=== PATIENT | male | born 1945 | race Caucasian/White ===

== ENCOUNTER 2018-12-10 11:01 | Outpatient (REF) | payer MEDICARE, SELFPAY ==
[2018-12-10 19:48] LABS: BUN 15 mg/dL (7-18); CREATININE 1.09 mg/dL (0.70-1.30); Calcium 9.2 mg/dL (8.5-10.1); Chloride 106 mmol/L (98-107); Glucose 86 mg/dL (70-100); Potassium 4.5 mmol/L (3.5-5.1); Sodium 142 mmol/L (136-145)
[2018-12-14 11:47] LABS: PSA, Screening 0.5 ng/ml (0-6.5)
== END 2018-12-10 11:21 ==
LOC: NCHCN 11:01
PROVIDERS: PCP Family Medicine; Visit Provider Family Medicine
DX: I10 Essential (primary) hypertension (principal); N40.0 Benign prostatic hyperplasia without lower urinary tract symptoms; Z12.5 Encounter for screening for malignant neoplasm of prostate
CPT/HCPCS: 80048; 84153

== ENCOUNTER 2019-12-30 08:10 | Observation (INO) | payer MEDICARE, SELFPAY ==
[2019-12-30] VITALS (23 sets, daily range): BP systolic 84–147; BP diastolic 48–122; PULSE 61–85; RESP 14–30; TEMP 36.7–37.1; O2SAT 89–95
--- NOTE | 2019-12-30 08:00 | RT.EKG_ITS ---
APPROVED REPORT Exam: Resting ECG Patient Location: E HR:77 bpm ECG Measurements Heart Rate 77 AXIS WA 201 P 37 QRSd 92 QRS -28 QT 421 T 58 QTc 477 Conclusion Sinus rhythm...normal P axis, V-rate 60- 99 Inferior infarct, old...Q >35mS, II III aVF
[2019-12-30] MEDS: Normal Saline 1,000 ML 1000 ML IV ×2 (08:15→08:42)
--- NOTE | 2019-12-30 08:21 | ED.GENADUL_ITS ---
Discharge Plan Disposition Patient Disposition: [facility] INPATIENT Condition: Good Discharge Details Clinical Impression: Acute hypotension, Hypoxia Admit Date/Time: 12/30/19 10:45 Admit Provider: Marshall Amaya Attending Provider: Marshall Amaya Primary Care Provider: Meagan Neely V ED Provider: Tara Jin Discharge Data Discharge Date/Time-TO BE ENTERED AT DEPARTURE: 12/30/19 11:46 Medical Decision Making <Tara Jin - Last Filed: 12/30/19 15:07> Work-up ordered including CBC, CMP, magnesium, troponin x2, EKG, CT chest PE protocol. 0838: Blood pressure at this time is 84/49 map of 58. Instructed nurse staff community health to being an additional liter of normal saline wide open. He is got approximately 500 mls at this time. He is alert and oriented, no complaints at this time. Differential diagnosis includes PE, CAD, dehydration, sepsis Patient is on 2L O2 N/C he is satting 93%, former smoker, recent prescription for albuterol. O944: Blood pressure is now up to 115/49, pulse 65, respirations 1893% on 2 L nasal cannula. White blood cell count is 247.54, absolute neutrophils 155.94 on review of labs from December 16, 2027 [facility] his white blood cell count was 296.16 and absolute neutrophils were 183.62. Lactate is 1.8, potassium is three 4.4 BUN is 28 creatinine is 1.47 GFR is 46.57. 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 Negative CT Chest for PE. BP at this time is 131/64 with a map of 81. Hospitalist paged for possible admission due to hypotension upon arrival and hypoxia requiring oxygen. 1011: Spoke with Dr. Amaya regarding patient, he agrees to admission for obs at this time. Informed patient of POC. contacted and notified of Plan of care, verbalizes understanding. Medical Records Medical records reviewed: Yes I reviewed the patient's medical records. Medical records narrative: CT chest CTA thoracic aorta results obtained from [facility] from January 25, 2019. Admission history and physical received from [facility] from December 16, 2019 and discharge summary from December 21, 2019 from [facility]. <Ángel Aragon MD - Last Filed: 01/06/20 09:18> 9:11 -- Patient seen, examined, and discussed with THERON Jin. I agree with treatment plan as discussed/documented. Patient is a 74-year-old male recently diagnosed with leukemia, recently started on chemotherapy, also history of stable aortic aneurysm per patient, here with intermittent dizziness over the past few weeks, was at outpatient clinic today and found to be hypotensive. Patient denies pain, fever, cough, shortness of breath or swelling. We have given initial IV fluid bolus and BP is improved. Patient notes he is feeling better. Patient examined and lungs clear to auscultation, regular rate and rhythm with no murmur, no calf tenderness, abdominal exam benign. Initial blood pressure hypotensive. Patient is not tachycardic but is on a beta-cortes. Repeat blood pressure after 0.5 L crystalloid bolus improved with map now 62. Will continue IV fluid bolus. High concern for pulmonary embolism. Plan to obtain CT of the chest. Screening ECG was reviewed and interpreted by me: Sinus rhythm 77 bpm, normal axis, no STEMI.' I spoke with the patient's in a parking more about diagnostic treatment plan. HPI <Tara Jin - Last Filed: 12/30/19 15:07> General Mode of arrival: EMS . Date/Time Provider Initiated Documentation: 12/30/19 08:11 . Limitations to Documentation: no limitations . Information obtained by: patient and EMS . HPI Narrative: 74-year-old male presents to the ER via EMS chief complaint of dizziness and low blood pressure. Per staff at the hematology oncology facility patient appeared pale and diaphoretic, he began to feel dizzy sat down and found his blood pressure being 70 systolic. EMS got there and a standing blood pressure was 69 systolic. Patient reports the room spinning. Patient denies any chest pain or shortness of breath however he has borderline oxygen sat on room air at 89%. Upon initial exam does have a blood pressure of 88/52 after a couple 100 cc of normal saline infusion. He does have a diagnosis of leukemia which she has been taking oral chemo pills for. Related Data Home Medications Medication Instructions Recorded Confirmed albuterol sulfate 2 puff INHALATION Q4H PRN PRN 12/30/19 12/30/19 allopurinol 100 mg PO BID 12/30/19 12/30/19 omeprazole 40 mg PO DAILY 12/30/19 12/30/19 tamsulosin 0.8 mg PO QHS 12/30/19 12/30/19 terazosin 10 mg PO DAILY 12/30/19 12/30/19 Allergies Allergy/AdvReac Type Severity Reaction Status Date / Time No Known Allergies Allergy Unverified 12/30/19 08:23 Review of Systems <Tara Jin - Last Filed: 12/30/19 15:07> Narrative: Constitutional: Negative for weight loss, alert and oriented, well groomed, normal body habitus, appears comfortable. HEENT: Denies trauma, headaches, blurry vision, nasal discharge, sore throat, trouble swallowing. Chest: Denies chest pain, palpitations, irregular rhythm, hypertension. Respiratory: Denies Shortness of breath, cough, hemoptysis. GI: Denies abdominal pain, nausea, vomiting, diarrhea, constipation. : Denies dysuria, hematuria, flank pain, rectal bleeding. Neuro: Denies dizziness, blurry vision, weakness, syncope, headache or facial numbness. Hematologic: Denies easy bruising, intolerance to heat or cold, hair loss. PFSH <Tara Rauschton - [facility] Filed: 12/30/19 15:07> Medical History OSVALDO (acute kidney injury) CML (chronic myeloid leukemia) GERD (gastroesophageal reflux disease) HTN (hypertension) Social History Smoking/Tobacco Use Status: Former Tobacco Use Alcohol Intake: former Drug use: Never Substance use type: does not use Do you feel safe at home: Yes Do you feel safe in your relationship?: Yes Exam <Tara Jin - [facility] Filed: 12/30/19 15:07> Narrative Exam Narrative: Constitutional: Alert and oriented x3. Appears stated age. Normal body habitus. Head: Normocephalic, no trauma. Eyes: Pupils PERRLA, Red reflex noted, EOM's intact. Eyelids symmetrical without lesions, discharge, or swelling. ENT: Bilateral TM's WNL, External ear normal to inspection, no mastoid TTP, swelling, or erythema, Nasal turbinates WNL, no nasal discharge. Normal dentition, Posterior pharynx WNL, no exudate. Chest: RRR, Normal S1, S2, distal pulses intact. Hypotension at 88/52. Resp: Lungs clear to auscultation bilaterally, no wheezes, rales, or rhonchi. Musculoskeletal: Normal gait, 5/5 strength to all four extremities. Skin: No suspicious rashes or lesions. Capillary refill less than 2 sec. pale Neurologic: Cranial nerves II-XII intact. Alert and oriented x 3. DTR's intact. Hematologic/Lymphatic: No ecchymosis, no lymphadenopathy.
[2019-12-30 08:40] LABS: Lactate 1.8 mmol/L (0.6-1.4)
[2019-12-30] MEDS: Normal Saline Flush 10 ML SYR IVP (08:43)
--- NOTE | 2019-12-30 08:44 | NUR.NOTE ---
Nursing Note: Sean, waiting in car. Updated on plan of care. She states she will wait in parking lot, despite projection of multiple hours of treatment.
[2019-12-30 08:47] LABS: Abs Immature Grans 69.31 10^3/uL (0.0-0.06); HCT 37.8 % (40.0-50.0); HGB 12.2 g/dL (13.5-17.5); MCH 32.7 pg (27.0-33.0); MCHC 32.3 % (32.0-36.0); MCV 101.3 fL (80-95); MPV 11.7 fL (8.0-11.0); Platelet Count 315 10^3/uL (130-400); RBC 3.73 10^6/uL (4.36-5.78); RDW 19.1 % (11.8-14.1); RDW-SD 68.9 fL
[2019-12-30 09:00] LABS: WBC 247.54 10^3/uL (4.4-10.8)
[2019-12-30 09:07] LABS: ALT 22 U/L (16-63); AST 38 U/L (15-37); Alkaline Phosphatase 81 U/L (46-116); Anion Gap 8.4 mmol/L (3-11); BUN 28 mg/dL (7-18); Bilirubin, Total 0.5 mg/dL (0.2-1.0); CO2 26.6 mmol/L (21.0-32.0); CREATININE 1.47 mg/dL (0.70-1.30); Calcium 8.9 mg/dL (8.5-10.1); Chloride 103 mmol/L (98-107); Estimated GFR 46.57 (mL/min/1.73m2); Glucose 145 mg/dL (74-106); Potassium 3.4 mmol/L (3.5-5.1); Sodium 138 mmol/L (136-145); Total Protein 7.3 g/dL (6.4-8.2)
[2019-12-30 09:11] LABS: Absolute Basophil Count 17.33 10^3/uL (0.0-0.2); Absolute Eosinophil Count 12.38 10^3/uL (0.0-0.7); Absolute Lymphocyte Count 2.48 10^3/uL (1.2-3.4); Absolute Monocyte Count 2.48 10^3/uL (0.1-0.8); Absolute Neutrophil Count 155.95 10^3/uL (1.2-6.7); Bands % 23
[2019-12-30 09:12] LABS: Anisocytosis 2+; Diff Comment Manual Differential; Macrocytosis 1+; Metamyelocytes % 10; Myelocytes % 10; Nucleated RBC 0 %; Polychromasia Present; Promyelocytes % 3
[2019-12-30 09:14] LABS: Troponin I < 0.05 ng/mL (<0.06)
[2019-12-30] MEDS: Normal Saline - Diluent 50 ML VIAL IV (09:44)
[2019-12-30] MEDS: Omnipaque 350 MG/ML 100 ML BTL IJ (09:45)
--- NOTE | 2019-12-30 09:46 | DI.CT_ITS ---
EXAM: CT CHEST PE CTA CLINICAL HISTORY: Hypotension, hypoxia, R/O PE. TECHNIQUE: Imaging Protocol: Axial CT angiography was performed with multi-slice acquisition and mu lti-planar and/or 3D reconstructions. CONTRAST MATERIAL: Intravenous: Omnipaque 350 Contrast volume:100 mL COMPARISON: CR CHEST 2 VIEWS PA,LAT from 07/31/2010 FINDINGS: There is patient motion artifact. Pulmonary Arteries: Patient motion artifact limits evaluation of the pulmonary arteries. No central pulmonary arterial emboli are noted. Tracheobronchial tree: Patent where visualized. Mediastinum and Marisa: No dominant adenopathy or fluid collection. Pulmonary parenchyma: No consolidation or dominant measurable mass. No architectural distortion. Pleura: No effusion or pneumothorax. Heart: The heart is not dilated. No coronary artery calcifications are seen. No pericardial effusion. Aorta: Thoracic aorta non-dilated. Mild atherosclerosis. No dissection. Upper abdomen: Unremarkable. Bones: Degenerative changes. Soft tissues: Unremarkable. IMPRESSION: No evidence of pulmonary embolism, thoracic aortic dissection or aneurysm. Findings were discussed with the emergency department on the date of the examination. RADIATION DOSE DELIVERED: Total DLP DATA REPOSITORY: All CT scans at this facility are submitted to the National Radiology Data Registry (NRDR) Dose Index Registry (DIR) with the [employer] (ACR). RADIATION OPTIMIZATION: All CT scans at this facility use at least one of these dose optimization te chniques: automated exposure control; mA and/or kV adjustment per patient size (includes targeted exa ms where dose is matched to clinical indication); or iterative reconstruction.
--- NOTE | 2019-12-30 11:05 | HPE_ITS ---
Date of service: 12/30/19 Time of Service: 11:05 Assessment and Plan Assessment and plan (1) CML (chronic myeloid leukemia): Start date: 12/30/19 Start time: 11:13 Status: Acute Assessment and plan: New onset diagnosis CML with recent chemotherapy, presents with hypoxia and hypotension, WBC 247, improved from previous 296 on 12/15, admitted to m/s receiving aggressive hydration. No source of infection. Likely cancer induced, he does have enlarged spleen, lactate 1.8. (2) Hypoxia: Start date: 12/30/19 Start time: 11:26 Status: Acute Assessment and plan: Improved with oxygen CT r/o PE, PNA (3) Acute hypotension: Start date: 12/30/19 Start time: 11:31 Status: Acute Assessment and plan: Aggressive hydration, hold antihypertensives (4) HTN (hypertension): Start date: 12/30/19 Start time: 11:32 Status: Chronic Assessment and plan: Hold antihypertensives in setting of severe dehydration Nikolay healthy meal Qualifiers: Hypertension type: essential hypertension Qualified Code(s): I10 - Essential (primary) hypertension (5) OSVALDO (acute kidney injury): Start date: 12/30/19 Start time: 11:27 Status: Chronic Assessment and plan: Improved from Dec 15. Continue hydration, hold nephrotoxic medications (6) GERD (gastroesophageal reflux disease): Start date: 12/30/19 Start time: 11:34 Status: Chronic Assessment and plan: Continue omeprazole po Above case discussed with Dr. Amaya who is in agreement. Qualifiers: Esophagitis presence: esophagitis presence not specified Qualified Code(s): K21.9 - Gastro-esophageal reflux disease without esophagitis History of Present Illness History of Present Illness Chief Complaint: CML, Hypotension, OSVALDO, Deydration Narrative: 74 y.o male with PMH of smoking, HTN, GERD, recently diagnosed with CML presents to [facility] ED after hypotension at outpatient clinic. Mr. Neff is a newly diagnosed CML patient, recently started on chemotherapy; who showed up for to outpatient clinic today and was found to be hypotensive with hypoxia. In the ED he was found to have oxygen lever below 88 placed on 2 l and saturation increased to 93%. BP on arrival was 84/59, he received saline boluses; labs in the ED revealing WBC at 247.46, down from 296.16 on dec 15 with ANC 155 down from 183. Lactate was 1.8, K 3.4, Creatinine 1.47. He was asked to be admitted to M/S for further management. CT negative for PE, infectious etiology. Review of Systems All systems reviewed & are unremarkable except as noted in HPI and below PFSH Medical History OSVALDO (acute kidney injury) CML (chronic myeloid leukemia) GERD (gastroesophageal reflux disease) HTN (hypertension) Social History Smoking/Tobacco Use Status: Former Tobacco Use Alcohol Intake: former Drug use: Never Substance use type: does not use Do you feel safe at home: Yes Do you feel safe in your relationship?: Yes Meds Home Medications and Allergies Home Medications Medication Instructions Recorded Confirmed Type albuterol sulfate 2 puff INHALATION Q4H PRN PRN 12/30/19 12/30/19 History allopurinol 100 mg PO BID 12/30/19 12/30/19 History metoprolol tartrate 25 mg PO BID 12/30/19 12/30/19 History omeprazole 40 mg PO DAILY 12/30/19 12/30/19 History tamsulosin 0.8 mg PO QHS 12/30/19 12/30/19 History terazosin 10 mg PO DAILY 12/30/19 12/30/19 History terazosin mg 12/30/19 History Allergies Allergy/AdvReac Type Severity Reaction Status Date / Time No Known Allergies Allergy Unverified 12/30/19 08:23 Exam Narrative Exam Narrative: Elderly pleasant and cooperative male AA0x3 sitting up in bed, speaking in complete sentences. No JVD, MMM, EOMI, PERRLA. Abd round, bsx4. LSC. Skin intact. RRR with extra beat once in a while. Skin intact no clubbing, cyanosis or edema Results Labs Result diagrams: 12/30/19 08:25 12/30/19 08:25 Labs: Laboratory Results - last 24 hr 12/30/19 12/30/19 12/30/19 08:25 08:25 08:25 WBC 247.54 H* RBC 3.73 L Hgb 12.2 L Hct 37.8 L MCV 101.3 H MCH 32.7 MCHC 32.3 RDW 19.1 H Plt Count 315 MPV 11.7 H Immature Gran % See Differential Neutrophils % 40.0 Band Neutrophils % 23 Lymphocytes % 1.0 Monocytes % 1.0 Eosinophils % 5.0 Basophils % 7.0 Metamyelocytes % 10 Myelocytes % 10 Promyelocytes % 3 Nucleated RBC % 0 Absolute Neutrophils 155.95 H Absolute Lymphocytes 2.48 Absolute Monocytes 2.48 H Absolute Eosinophils 12.38 H Absolute Basophils 17.33 H RBC Morphology See below Polychromasia Present Anisocytosis 2+ Macrocytosis 1+ VBG Lactate 1.8 H Sodium 138 Potassium 3.4 L Chloride 103 Carbon Dioxide 26.6 Anion Gap 8.4 BUN 28 H Creatinine 1.47 H Estimated GFR/1.73 m2 46.57 Glucose 145 H Calcium 8.9 Magnesium 2.0 Total Bilirubin 0.5 AST 38 H ALT 22 Alkaline Phosphatase 81 Troponin I < 0.05 Total Protein 7.3 Albumin 3.0 L Last Vital Signs Temp 36.7 C 12/30/19 08:18 Pulse 62 12/30/19 10:30 Resp 14 12/30/19 10:30 BP 125/73 12/30/19 10:30 Pulse Ox 94 12/30/19 10:30 COVID-19 Screening Have you,or household,traveled outside [place] in last 14 days?: No Had IN PERSON contact w/suspected or confirmed C-19 person: No
[2019-12-30 11:36] LABS: Procalcitonin 0.6 ng/mL
[2019-12-30] MEDS: Normal Saline 1,000 ML 200 ML IV ×3 (12:23→22:37)
[2019-12-30] MEDS: Potassium Chloride 20 MEQ TABCR 40 MEQ PO (12:24)
[2019-12-30] MEDS: Heparin 5,000 UNITS/ML VIAL 5000 UNITS SC ×2 (14:05→22:33)
[2019-12-30 14:24] LABS: Bilirubin Negative (Negative); Blood Negative (Negative); Clarity Clear (Clear); Glucose Negative (Negative); Ketones Negative (Negative); Leukocyte Esterase Negative (Negative); Nitrite Negative (Negative); Urobilinogen 0.2 EU/dL (Up TO 0.2); pH 5.5 (5-8)
[2019-12-30 14:49] LABS: Troponin I < 0.05 ng/mL (<0.06)
[2019-12-30] MEDS: Tamsulosin 0.4 MG CAPCR 0.8 MG PO (19:27)
[2019-12-30] MEDS: Allopurinol 100 MG TAB PO (19:27)
[2019-12-30 22:27] LABS: COVID-19 RT-PCR UVMMC Result Negative (Negative)
[2019-12-31] VITALS (8 sets, daily range): BP systolic 138–146; BP diastolic 76–83; PULSE 72–97; RESP 12–20; TEMP 35.9–37.1; O2SAT 92–100
[2019-12-31] MEDS: Normal Saline 1,000 ML 200 ML IV (03:09)
[2019-12-31] MEDS: Heparin 5,000 UNITS/ML VIAL 5000 UNITS SC ×2 (06:10→14:17)
[2019-12-31 06:53] LABS: Abs Immature Grans 70.32 10^3/uL (0.0-0.06); HCT 32.6 % (40.0-50.0); HGB 10.6 g/dL (13.5-17.5); MCH 32.1 pg (27.0-33.0); MCHC 32.5 % (32.0-36.0); MCV 98.8 fL (80-95); MPV 11.3 fL (8.0-11.0); Nucleated RBC 1 %; Platelet Count 302 10^3/uL (130-400); RDW 19.3 % (11.8-14.1); RDW-SD 68.3 fL
[2019-12-31 07:00] LABS: Anion Gap 8.1 mmol/L (3-11); BUN 19 mg/dL (7-18); CO2 24.9 mmol/L (21.0-32.0); CREATININE 1.19 mg/dL (0.70-1.30); Calcium 8.4 mg/dL (8.5-10.1); Chloride 109 mmol/L (98-107); Estimated GFR 59.44 (mL/min/1.73m2); Glucose 82 mg/dL (74-106); Potassium 3.6 mmol/L (3.5-5.1); Sodium 142 mmol/L (136-145)
[2019-12-31 07:35] LABS: WBC 230.12 10^3/uL (4.4-10.8)
[2019-12-31 07:37] LABS: Absolute Neutrophil Count 149.58 10^3/uL (1.2-6.7); Atypical Lymphocytes % 1; Bands % 20
[2019-12-31 07:38] LABS: Diff Comment Manual Differential; Metamyelocytes % 5; Myelocytes % 18; Promyelocytes % 5
[2019-12-31 07:39] LABS: Anisocytosis 1+; Macrocytosis 1+; Polychromasia Present
[2019-12-31] MEDS: Allopurinol 100 MG TAB PO (08:37)
--- NOTE | 2019-12-31 11:08 | DSE_ITS ---
Date of service: 12/31/19 Time of Service: 11:08 DS: Diagnosis Discharge Diagnosis (1) CML (chronic myeloid leukemia): Status: Acute (2) Hypoxia: Status: Acute (3) Acute hypotension: Status: Acute (4) HTN (hypertension): Status: Chronic (5) OSVALDO (acute kidney injury): Status: Chronic (6) GERD (gastroesophageal reflux disease): Status: Chronic Discharge Plan Disposition Patient Disposition: HOME Condition: Good Discharge Details Reason For Visit: HYPOTENSION,HYPOXIA Admit Date/Time: 12/30/19 10:45 Admit Provider: Marshall Rausch Attending Provider: Marshall Rausch Primary Care Provider: Meagan Neely V Hospital Course Hospital Course: This is a 74 y.o male with history of tobacco abuse, hypertension, GERD, who was recently diagnosed with CML and started on chemotherapy. He presented to [facility] ED after being found hypotensive and hypoxic at outpatient appointment. Work up in the ED was similar with oxygen requirements for a sat of 88 on room air and BP on arrival was 84/59, he received saline boluses; labs in the ED revealed WBC at 247.46, down from 296.16 on dec 15 with ANC 155 down from 183. Lactate was 1.8, K 3.4, Creatinine 1.47. He was admitted to /S on hospitalist services for further management. CT chest was negative for PE, infectious etiology. while on med/surg his oxygen was weaned off succesfully. he was satting in the high 90's on an ambulatory pulse oximetry exam. His metoprolol was placed on hold and his blood pressure normalized after receiving IV fluids. His respiratory status remained stable and some of the hypoxia was believed to be false low d/t low perfusion from hypotension making pulse oximetry less reliable and now improved with better pressures. he is eating and drinking well and voicing no new concerns. he is stable for discharge to home, he was instructed to monitor blood pressure and pulse and will defer when to resume metoprolol to his outpatient team. he will follow up outpatient as scheduled, return sooner for new or worsening symptoms discharge plan discussed with DR Rausch who is in agreement Home Meds and New Rx's Prescriptions: Continued allopurinol 100 mg Tablet 100 mg PO BID RF: 0 omeprazole 40 mg Capsule,Delayed Release(Dr/Ec) 40 mg PO DAILY RF: 0 tamsulosin 0.4 mg capsule 0.8 mg PO QHS RF: 0 albuterol sulfate 90 mcg/actuation HFA aerosol inhaler 2 puff INHALATION Q4H PRN PRNRF: 0 terazosin 10 mg capsule 10 mg PO DAILY RF: 0 Discontinued terazosin 2 mg Capsule RF: 0 metoprolol tartrate 25 mg tablet 25 mg PO BID RF: 0 Discharge Instructions Instructions: Dehydration (DC) Additional Instructions: keep scheduled follow up appointments drink at least 6-8 glasses of water daily to stay well hydrated. check blood pressure and pulse 3 times weekly, record and bring to follow up appointment. Stand Alone Forms: Nursing Discharge Form Referrals: Meagan Neely MD [Primary Care Provider] - Activity:: Activity as Tolerated Equipment/Supplies:: No Equipment Needed Diet:: As Tolerated Discharge Orders Discharge Orders: Discharge Order (Routine); Ordered 12/31/19 Ordered By: Janet Escudero DS: Summary Status at Discharge Functional status at discharge: independent ambulation Overall status at discharge: patient is back to baseline Mental Status: mental status grossly normal Speech and Movement: speech and movement normal Mood: congruent mood Affect: normal affect Exam Const General: cooperative, healthy appearing (fatigued appearing), comfortable and no acute distress Nutritional Appearance: overweight Orientation: alert, awake and oriented x3 HENMT Head: normal to inspection, normocephalic and atraumatic Mouth: oral mucosae normal Chest Chest: normal inspection of the chest Resp Effort & Inspection: normal respiratory effort Auscultation: crackles bilaterally Cardio Rate: regular rate Rhythm: regular rhythm GI Inspection: normal to inspection Palpation: soft Auscultation: normal bowel sounds Skin General skin exam: no rashes or lesions noted Neuro General: patient alert, patient awake and patient oriented x3 Cognition: normal cognition Speech: speech normal Extrem General: normal to inspection and full ROM Psych Mental Status: mental status grossly normal Speech and Movement: speech and movement normal Mood: congruent mood Affect: normal affect DS: Data Vitals/I&O Vitals and I&O: Vital Signs Temperature 37.1 C 12/31/19 07:49 Temperature Source Tympanic 12/31/19 07:49 Pulse 72 12/31/19 07:49 Pulse Rhythm Regular 12/31/19 04:00 Pulse 70 12/30/19 11:38 Respiratory Rate 17 09/25/20 07:49 Respiratory Effort Non-Labored 12/31/19 04:00 Respiratory Depth Normal 12/31/19 04:00 Respiratory Pattern Normal 12/31/19 04:00 Blood Pressure 146/83 H 12/31/19 07:49 Blood Pressure Mean 129 12/30/19 11:38 Blood Pressure Position Supine 12/30/19 08:18 Pulse Oximetry 96 12/31/19 10:21 Oxygen Delivery Method Nasal Cannula 12/31/19 10:21 Oxygen Flow Rate 1 12/31/19 10:21 Pain Level 0 12/31/19 00:16 Comment 12/30/19 11:55 Intake & Output 12/30/19 12/30/19 12/31/19 11:59 23:59 11:59 Intake Total 1999 / 3950 1950 / 3950 1466.667 / 1466.667 Output Total 400 / 400 3700 / 3700 Balance 1999 / 3549 1550 / 3550 -2233.333 / -2233.333 Weight 128.82 kg Intake: IV 1999 / 3950 1950 / 3950 906.667 / 906.667 Oral 560 / 560 Output: Urine 400 / 400 3700 / 3700 Other: Urine Color Yellow Yellow Urine Appearance Clear Clear Clear Urine Odor None Voiding Methods Bedside Commode Bedside Commode Data Completed and Pending Labs on day of discharge: Labs from last 24 hours 12/31/19 12/31/19 12/30/19 06:38 06:38 16:00 WBC 230.12 H* Cancelled RBC 3.30 L Hgb 10.6 L Hct 32.6 L MCV 98.8 H MCH 32.1 MCHC 32.5 RDW 19.3 H Plt Count 302 MPV 11.3 H Immature Gran % See Differential Cancelled Neutrophils % 45.0 Cancelled Band Neutrophils % 20 Cancelled Lymphocytes % 1.0 Cancelled Atypical Lymphs % 1 Cancelled Monocytes % 4.0 Cancelled Eosinophils % 0.0 Cancelled Basophils % 1.0 Cancelled Metamyelocytes % 5 Cancelled Myelocytes % 18 Cancelled Promyelocytes % 5 Cancelled Other Cells % Cancelled Nucleated RBC % 1 Absolute Neutrophils 149.58 H Cancelled Absolute Lymphocytes 4.60 H Cancelled Absolute Monocytes 9.20 H Cancelled Absolute Eosinophils 0.00 Cancelled Absolute Basophils 2.30 H Cancelled RBC Morphology See below Cancelled Polychromasia Present Cancelled Hypochromasia Cancelled Poikilocytosis Cancelled Basophilic Stippling Cancelled Anisocytosis 1+ Cancelled Microcytosis Cancelled Macrocytosis 1+ Cancelled Spherocytes Cancelled Tear Drop Cells Cancelled Ovalocytes Cancelled Stomatocytes Cancelled Bernal-[place] Bodies Cancelled Jackson Cells/Echinocytes Cancelled Acanthocytes (Spur) Cancelled Schistocytes Cancelled Sodium 142 Potassium 3.6 Chloride 109 H Carbon Dioxide 24.9 Anion Gap 8.1 BUN 19 H D Creatinine 1.19 Estimated GFR/1.73 m2 59.44 Glucose 82 D Calcium 8.4 L Magnesium 2.0 Troponin I Procalcitonin Urine Color Urine Clarity Urine pH Ur Specific [place] Urine Protein Urine Ketones Urine Blood Urine Nitrite Urine Bilirubin Urine Urobilinogen Ur Leukocyte Esterase Urine Glucose COVID-19 PCR Nasopharyn COVID-19 PCR Ref Test Perform Site 12/30/19 12/30/19 12/30/19 14:10 14:09 10:30 WBC RBC Hgb Hct MCV MCH MCHC RDW Plt Count MPV Immature Gran % Neutrophils % Band Neutrophils % Lymphocytes % Atypical Lymphs % Monocytes % Eosinophils % Basophils % Metamyelocytes % Myelocytes % Promyelocytes % Other Cells % Nucleated RBC % Absolute Neutrophils Absolute Lymphocytes Absolute Monocytes Absolute Eosinophils Absolute Basophils RBC Morphology Polychromasia Hypochromasia Poikilocytosis Basophilic Stippling Anisocytosis Microcytosis Macrocytosis Spherocytes Tear Drop Cells Ovalocytes Stomatocytes Bernal-[place] Bodies Andrew Cells/Echinocytes Acanthocytes (Spur) Schistocytes Sodium Potassium Chloride Carbon Dioxide Anion Gap BUN Creatinine Estimated GFR/1.73 m2 Glucose Calcium Magnesium Troponin I < 0.05 Procalcitonin Urine Color Yellow Urine Clarity Clear Urine pH 5.5 Ur Specific [place] 1.010 Urine Protein Negative Urine Ketones Negative Urine Blood Negative Urine Nitrite Negative Urine Bilirubin Negative Urine Urobilinogen 0.2 Ur Leukocyte Esterase Negative Urine Glucose Negative COVID-19 PCR Negative Nasopharyn COVID-19 PCR Not Applicable Ref Test Perform Site [facility] 12/30/19 08:25 WBC RBC Hgb Hct MCV MCH MCHC RDW Plt Count MPV Immature Gran % Neutrophils % Band Neutrophils % Lymphocytes % Atypical Lymphs % Monocytes % Eosinophils % Basophils % Metamyelocytes % Myelocytes % Promyelocytes % Other Cells % Nucleated RBC % Absolute Neutrophils Absolute Lymphocytes Absolute Monocytes Absolute Eosinophils Absolute Basophils RBC Morphology Polychromasia Hypochromasia Poikilocytosis Basophilic Stippling Anisocytosis Microcytosis Macrocytosis Spherocytes Tear Drop Cells Ovalocytes Stomatocytes Bernal-[place] Bodies Jackson Cells/Echinocytes Acanthocytes (Spur) Schistocytes Sodium Potassium Chloride Carbon Dioxide Anion Gap BUN Creatinine Estimated GFR/1.73 m2 Glucose Calcium Magnesium Troponin I Procalcitonin 0.6 Urine Color Urine Clarity Urine pH Ur Specific [place] Urine Protein Urine Ketones Urine Blood Urine Nitrite Urine Bilirubin Urine Urobilinogen Ur Leukocyte Esterase Urine Glucose COVID-19 PCR Nasopharyn COVID-19 PCR Ref Test Perform Site [facility] Medical History OSVALDO (acute kidney injury) CML (chronic myeloid leukemia) GERD (gastroesophageal reflux disease) HTN (hypertension) Social History Smoking/Tobacco Use Status: Former Tobacco Use Alcohol Intake: former Drug use: Never Substance use type: does not use Do you feel safe at home: Yes Do you feel safe in your relationship?: Yes
--- NOTE | 2019-12-31 11:52 | PDOC.CMIN ---
- If Service Date Differs Date of service: 12/31/19 Time of Service: 11:52 Care Management Initial Assess REASON FOR HOSPITALIZATION:: Hypotension, Hypoxia PAST MEDICAL HISTORY/PAST SURGICAL HISTORY:: Medical History. OSVALDO (acute kidney injury). CML (chronic myeloid leukemia). GERD (gastroesophageal reflux disease). HTN (hypertension) PREVIOUS FUNCTIONAL STATUS/SOCIAL/FAMILY SUPPORTS:: Inder lives in [facility] with his , Sean. Together they have three children, 12 grandchildren, and 9 great grand children. 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 He is independent at baseline with his ADL's. CURRENT FUNCTIONAL STATUS:: Inder was just returning from his exercise oximetry walk when CM met with him. He stated that he was feeling better and was hoping to go home today if he is medically cleared. He was pleasant and engaged in conversation. He stated that he does not have any services at home, and doesn't believe he needs anything at this time. CM will continue to follow. ADVANCE DIRECTIVES:: None on file. Has patient been provided with info about the portal/API?: No Did the patient sign up for the portal?: No CODE STATUS:: Full Code INSURANCE COVERAGE / FINANCIAL ISSUES:: MCR CURRENT HOME/COMMUNITY SERVICES/EQUIPMENT:: No current services or equipment. PRIMARY CARE PHYSICIAN:: Meagan Neely POTENTIAL DISCHARGE NEEDS:: Follow up appointments PATIENT/FAMILY EDUCATION NEEDS:: Review disharge instructions regarding activity levels and medications, discussion of self care needs including ask me three. ANTICIPATED BARRIERS TO DISCHARGE:: None. TRANSPORTATION:: Via private vehicle with his . PLAN:: Anticipate Inder will return home when medically cleared. His will drive him home via private vehicle when ready. He will follow up with his PCP and discharge plan of care. CM will continue to follow.
--- NOTE | 2019-12-31 12:33 | PDOC.CMDIS ---
- If Service Date Differs Date of service: 12/31/19 Time of Service: 12:33 LACE Index Scoring Tool - Questions: Length of Stay (in days): 2 Acuity (Admit via E.D.?): Yes Comorbidities: Any Tumor E.D. Visits: 1 - Answers: Total Score: 8 Risk of Readmission: Low Risk Care Management Discharge Reason for Hospitalization: Hypotension, Hypoxia Discharge Plan: Inder will return home with no additional services at this time. His will drive him home via private vehicle. He will follow up with his PCP and discharge plan of care. He is happy to be going home. Patient/Family Education Needs: Review discharge instructions regarding activity levels and medications, discussion of self care needs including ask me three.
== END 2019-12-31 15:52 | disposition home or self-care (01) ==
LOC: ER 10:11 → MS 12:58
PROVIDERS: Nurse Practitioner Family; Admitting Provider Family Medicine; Emergency Provider Registered Nurse Emergency; PCP Family Medicine; Visit Provider Family Medicine
DX: R09.02 Hypoxemia (principal); C92.10 Chronic myeloid leukemia, BCR/ABL-positive, not having achieved remission; I95.9 Hypotension, unspecified; K21.9 Gastro-esophageal reflux disease without esophagitis; I10 Essential (primary) hypertension; N17.9 Acute kidney failure, unspecified; E86.0 Dehydration; Z79.899 Other long term (current) drug therapy
CPT/HCPCS: 36415; 71275; 80048; 80053; 84145; 85048; 93005; 94618; 96360; 99220; 99239; 99285; U0003; 81003; 83605; 83735; 84484; 85007; 85025; 93010; 99217; G0378; J1644; J3490

== ENCOUNTER 2020-01-26 02:26 | Outpatient (CLI) | payer MEDICARE, SELFPAY ==
[2020-01-26 14:06] LABS: Abs Immature Grans 115.15 10^3/uL (0.0-0.06); HCT 37.1 % (40.0-50.0); HGB 12.3 g/dL (13.5-17.5); MCH 33.2 pg (27.0-33.0); MCHC 33.2 % (32.0-36.0); MCV 100.3 fL (80-95); MPV 11.3 fL (8.0-11.0); RDW 19.1 % (11.8-14.1)
[2020-01-26 14:19] LABS: ALT 25 U/L (16-63); AST 45 U/L (15-37); Albumin 3.2 g/dL (3.4-5.0); Alkaline Phosphatase 101 U/L (46-116); Anion Gap 8.7 mmol/L (3-11); BUN 22 mg/dL (7-18); Bilirubin, Total 0.5 mg/dL (0.2-1.0); CO2 23.3 mmol/L (21.0-32.0); CREATININE 1.64 mg/dL (0.70-1.30); Chloride 104 mmol/L (98-107); Estimated GFR 41.05 (mL/min/1.73m2); Glucose 148 mg/dL (74-106); LDH 635 U/L (85-227); Potassium 4.1 mmol/L (3.5-5.1); Sodium 136 mmol/L (136-145); Total Protein 7.6 g/dL (6.4-8.2); Uric Acid 5.2 mg/dL (3.5-7.2); WBC 385.15 10^3/uL (4.4-10.8)
[2020-01-26 15:01] LABS: Absolute Lymphocyte Count 11.55 10^3/uL (1.2-3.4); Absolute Neutrophil Count 238.79 10^3/uL (1.2-6.7); Bands % 30
[2020-01-26 15:02] LABS: Absolute Eosinophil Count 3.85 10^3/uL (0.0-0.7); Metamyelocytes % 11; Myelocytes % 13; Nucleated RBC 1 %; Promyelocytes % 5
[2020-01-26 15:03] LABS: Other Cells % 2
[2020-01-26 15:05] LABS: Anisocytosis 2+; Diff Comment Manual Differential; Macrocytosis 1+; Polychromasia Present
[2020-01-26 15:07] LABS: Platelet Count 157 10^3/uL (130-400)
== END 2020-01-26 02:46 ==
PROVIDERS: Internal Medicine Hematology & Oncology; PCP Family Medicine; Visit Provider Family Medicine
DX: C92.10 Chronic myeloid leukemia, BCR/ABL-positive, not having achieved remission (principal)
CPT/HCPCS: 36415; 80053; 83615; 84550; 85025

== ENCOUNTER 2020-01-31 01:41 | Outpatient (CLI) | payer MEDICARE, SELFPAY ==
[2020-01-31 15:55] LABS: Abs Immature Grans 46.78 10^3/uL (0.0-0.06); HCT 39.5 % (40.0-50.0); MCH 32.3 pg (27.0-33.0); MCHC 32.9 % (32.0-36.0); Nucleated RBC 0 %; Platelet Count 158 10^3/uL (130-400); RBC 4.03 10^6/uL (4.36-5.78); RDW 18.9 % (11.8-14.1); RDW-SD 67.3 fL
[2020-01-31 16:05] LABS: WBC 221.57 10^3/uL (4.4-10.8)
[2020-01-31 16:16] LABS: Absolute Basophil Count 2.22 10^3/uL (0.0-0.2); Absolute Lymphocyte Count 2.22 10^3/uL (1.2-3.4); Absolute Monocyte Count 2.22 10^3/uL (0.1-0.8); Absolute Neutrophil Count 163.96 10^3/uL (1.2-6.7); Bands % 18; Metamyelocytes % 4; Myelocytes % 16; Promyelocytes % 3
[2020-01-31 16:20] LABS: ALT 26 U/L (16-63); AST 32 U/L (15-37); Alkaline Phosphatase 88 U/L (46-116); Anion Gap 7.4 mmol/L (3-11); BUN 24 mg/dL (7-18); Bilirubin, Total 0.5 mg/dL (0.2-1.0); CO2 23.6 mmol/L (21.0-32.0); CREATININE 1.54 mg/dL (0.70-1.30); Calcium 8.8 mg/dL (8.5-10.1); Chloride 104 mmol/L (98-107); Estimated GFR 44.14 (mL/min/1.73m2); Glucose 121 mg/dL (74-106); LDH 387 U/L (85-227); Potassium 4.3 mmol/L (3.5-5.1); Sodium 135 mmol/L (136-145); Total Protein 7.8 g/dL (6.4-8.2); Uric Acid 6.5 mg/dL (3.5-7.2)
[2020-01-31 17:10] LABS: Diff Comment Manual Differential
[2020-01-31 17:12] LABS: RBC Morphology Normal
== END 2020-01-31 02:01 ==
PROVIDERS: PCP Family Medicine; Visit Provider Internal Medicine Hematology & Oncology
DX: C92.10 Chronic myeloid leukemia, BCR/ABL-positive, not having achieved remission (principal)
CPT/HCPCS: 36415; 80053; 83615; 84550; 85025

== ENCOUNTER 2020-02-03 02:33 | Outpatient (CLI) | payer MEDICARE, SELFPAY ==
[2020-02-03 09:34] LABS: Abs Immature Grans 15.93 10^3/uL (0.0-0.06); HCT 42.1 % (40.0-50.0); HGB 13.6 g/dL (13.5-17.5); MCH 31.6 pg (27.0-33.0); MCHC 32.3 % (32.0-36.0); MCV 97.9 fL (80-95); MPV 11.4 fL (8.0-11.0); Nucleated RBC 0 %; RDW 19.3 % (11.8-14.1)
[2020-02-03 09:50] LABS: Absolute Eosinophil Count 1.07 10^3/uL (0.0-0.7); WBC 107.16 10^3/uL (4.4-10.8)
[2020-02-03 09:51] LABS: Absolute Basophil Count 2.14 10^3/uL (0.0-0.2); Absolute Lymphocyte Count 2.14 10^3/uL (1.2-3.4); Absolute Monocyte Count 1.07 10^3/uL (0.1-0.8); Bands % 24; Metamyelocytes % 4; Myelocytes % 8; Platelet Count 207 10^3/uL (130-400); Promyelocytes % 1
[2020-02-03 09:52] LABS: Anisocytosis 2+; Diff Comment Manual Differential; Macrocytosis 1+; Microcytosis 1+; Polychromasia Present
[2020-02-03 10:00] LABS: ALT 25 U/L (16-63); AST 33 U/L (15-37); Alkaline Phosphatase 82 U/L (46-116); Anion Gap 9.5 mmol/L (3-11); BUN 21 mg/dL (7-18); Bilirubin, Total 0.6 mg/dL (0.2-1.0); CO2 21.5 mmol/L (21.0-32.0); CREATININE 1.25 mg/dL (0.70-1.30); Calcium 8.9 mg/dL (8.5-10.1); Chloride 105 mmol/L (98-107); Estimated GFR 56.16 (mL/min/1.73m2); Glucose 126 mg/dL (74-106); LDH 302 U/L (85-227); Sodium 136 mmol/L (136-145); Total Protein 7.7 g/dL (6.4-8.2); Uric Acid 7.2 mg/dL (3.5-7.2)
== END 2020-02-03 02:53 ==
PROVIDERS: PCP Family Medicine; Visit Provider Internal Medicine Hematology & Oncology
DX: C92.10 Chronic myeloid leukemia, BCR/ABL-positive, not having achieved remission (principal)
CPT/HCPCS: 36415; 80053; 83615; 84550; 85025

== ENCOUNTER 2020-02-17 13:49 | Outpatient (CLI) | payer MEDICARE, SELFPAY ==
[2020-02-17 14:27] LABS: Abs Immature Grans 0.05 10^3/uL (0.0-0.06); Absolute Basophil Count 0.06 10^3/uL (0.0-0.2); Absolute Lymphocyte Count 0.74 10^3/uL (1.2-3.4); Absolute Monocyte Count 0.39 10^3/uL (0.1-0.8); Absolute Neutrophil Count 3.32 10^3/uL (1.2-6.7); Basophils % 1.3; Eosinophils % 2.1; HCT 39.4 % (40.0-50.0); HGB 12.7 g/dL (13.5-17.5); Immature Grans % 1.1; Lymphocytes % 15.9; MCH 31.8 pg (27.0-33.0); MCHC 32.2 % (32.0-36.0); MCV 98.5 fL (80-95); MPV 11.1 fL (8.0-11.0); Monocytes % 8.4; Neutrophils % 71.2; Nucleated RBC 0 %; Platelet Count 182 10^3/uL (130-400); RDW-SD 68.1 fL; WBC 4.66 10^3/uL (4.4-10.8)
[2020-02-17 14:32] LABS: ALT 36 U/L (16-63); AST 30 U/L (15-37); Albumin 3.1 g/dL (3.4-5.0); Alkaline Phosphatase 161 U/L (46-116); BUN 18 mg/dL (7-18); Bilirubin, Total 0.5 mg/dL (0.2-1.0); CREATININE 1.17 mg/dL (0.70-1.30); Calcium 8.5 mg/dL (8.5-10.1); Chloride 104 mmol/L (98-107); Glucose 91 mg/dL (74-106); LDH 172 U/L (85-227); Potassium 4.3 mmol/L (3.5-5.1); Sodium 136 mmol/L (136-145); Total Protein 7.2 g/dL (6.4-8.2); Uric Acid 4.9 mg/dL (3.5-7.2)
== END 2020-02-17 14:09 ==
PROVIDERS: PCP Family Medicine; Visit Provider Internal Medicine Hematology & Oncology
DX: C92.10 Chronic myeloid leukemia, BCR/ABL-positive, not having achieved remission (principal)
CPT/HCPCS: 36415; 80053; 83615; 84550; 85025

== ENCOUNTER 2020-02-24 09:32 | Outpatient (CLI) | payer MEDICARE, SELFPAY ==
[2020-02-24 13:20] LABS: Abs Immature Grans 0.03 10^3/uL (0.0-0.06); Absolute Eosinophil Count 0.09 10^3/uL (0.0-0.7); Absolute Lymphocyte Count 0.73 10^3/uL (1.2-3.4); Absolute Monocyte Count 0.43 10^3/uL (0.1-0.8); Absolute Neutrophil Count 4.83 10^3/uL (1.2-6.7); Basophils % 1.6; Eosinophils % 1.4; HCT 40.9 % (40.0-50.0); HGB 13.2 g/dL (13.5-17.5); Immature Grans % 0.5; Lymphocytes % 11.8; MCH 31.7 pg (27.0-33.0); MCHC 32.3 % (32.0-36.0); MCV 98.3 fL (80-95); MPV 10.9 fL (8.0-11.0); Monocytes % 6.9; Neutrophils % 77.8; Nucleated RBC 0 %; Platelet Count 187 10^3/uL (130-400); RBC 4.16 10^6/uL (4.36-5.78); RDW 18.2 % (11.8-14.1); RDW-SD 65.5 fL; WBC 6.21 10^3/uL (4.4-10.8)
== END 2020-02-24 09:52 ==
PROVIDERS: PCP Family Medicine; Visit Provider Internal Medicine Hematology & Oncology
DX: C92.10 Chronic myeloid leukemia, BCR/ABL-positive, not having achieved remission (principal)
CPT/HCPCS: 36415; 85025

== ENCOUNTER 2020-03-09 03:25 | Outpatient (CLI) | payer MEDICARE, SELFPAY ==
[2020-03-09 09:00] LABS: Abs Immature Grans 0.02 10^3/uL (0.0-0.06); Absolute Eosinophil Count 0.23 10^3/uL (0.0-0.7); Absolute Lymphocyte Count 0.88 10^3/uL (1.2-3.4); Absolute Monocyte Count 0.54 10^3/uL (0.1-0.8); Basophils % 1.5; Eosinophils % 3.3; HGB 13.4 g/dL (13.5-17.5); Immature Grans % 0.3; Lymphocytes % 12.8; MCH 31.4 pg (27.0-33.0); MCHC 31.9 % (32.0-36.0); MCV 98.4 fL (80-95); MPV 10.3 fL (8.0-11.0); Monocytes % 7.9; Neutrophils % 74.2; Nucleated RBC 0 %; Platelet Count 229 10^3/uL (130-400); RBC 4.27 10^6/uL (4.36-5.78); RDW 16.6 % (11.8-14.1); RDW-SD 60.8 fL; WBC 6.87 10^3/uL (4.4-10.8)
[2020-03-09 09:11] LABS: ALT 22 U/L (16-63); AST 23 U/L (15-37); Albumin 3.2 g/dL (3.4-5.0); Alkaline Phosphatase 132 U/L (46-116); Anion Gap 7.5 mmol/L (3-11); BUN 19 mg/dL (7-18); Bilirubin, Total 0.4 mg/dL (0.2-1.0); CO2 26.5 mmol/L (21.0-32.0); CREATININE 1.17 mg/dL (0.70-1.30); Calcium 8.4 mg/dL (8.5-10.1); Chloride 106 mmol/L (98-107); Glucose 85 mg/dL (74-106); LDH 155 U/L (85-227); Potassium 4.1 mmol/L (3.5-5.1); Sodium 140 mmol/L (136-145); Total Protein 7.3 g/dL (6.4-8.2)
== END 2020-03-09 03:45 ==
PROVIDERS: PCP Family Medicine; Visit Provider Internal Medicine Hematology & Oncology
DX: C92.10 Chronic myeloid leukemia, BCR/ABL-positive, not having achieved remission (principal)
CPT/HCPCS: 36415; 80053; 83615; 84550; 85025

== ENCOUNTER 2020-03-23 20:22 | Outpatient (CLI) | payer MEDICARE, SELFPAY ==
[2020-03-23 09:28] LABS: Abs Immature Grans 0.03 10^3/uL (0.0-0.06); Absolute Basophil Count 0.09 10^3/uL (0.0-0.2); Absolute Eosinophil Count 0.26 10^3/uL (0.0-0.7); Absolute Lymphocyte Count 0.75 10^3/uL (1.2-3.4); Absolute Monocyte Count 0.44 10^3/uL (0.1-0.8); Absolute Neutrophil Count 5.72 10^3/uL (1.2-6.7); Basophils % 1.2; Eosinophils % 3.6; HCT 44.5 % (40.0-50.0); HGB 14.2 g/dL (13.5-17.5); Immature Grans % 0.4; Lymphocytes % 10.3; MCH 30.9 pg (27.0-33.0); MCHC 31.9 % (32.0-36.0); MCV 96.7 fL (80-95); Neutrophils % 78.5; Nucleated RBC 0 %; Platelet Count 205 10^3/uL (130-400); RDW 15.7 % (11.8-14.1); WBC 7.29 10^3/uL (4.4-10.8)
[2020-03-23 11:24] LABS: ALT 28 U/L (16-63); AST 23 U/L (15-37); Albumin 3.7 g/dL (3.4-5.0); Alkaline Phosphatase 124 U/L (46-116); Anion Gap 9.1 mmol/L (3-11); BUN 21 mg/dL (7-18); Bilirubin, Total 0.4 mg/dL (0.2-1.0); CO2 25.9 mmol/L (21.0-32.0); CREATININE 1.25 mg/dL (0.70-1.30); Calcium 8.7 mg/dL (8.5-10.1); Chloride 105 mmol/L (98-107); Estimated GFR 56.16 (mL/min/1.73m2); Glucose 82 mg/dL (74-106); LDH 172 U/L (85-227); Potassium 4.5 mmol/L (3.5-5.1); Sodium 140 mmol/L (136-145); Total Protein 7.2 g/dL (6.4-8.2); Uric Acid 4.5 mg/dL (3.5-7.2)
[2020-04-03 13:01] LABS: Indication for Study See Comments
[2020-04-03 13:02] LABS: Specimen Type Peripheral blood
[2020-04-03 13:03] LABS: BCR-ABL1 p210 FusionTranscript See Comments
[2020-04-03 13:08] LABS: BCR-ABL1 Interpretation See Comments; Limitations and Disclaimers See Comments
== END 2020-03-23 20:42 ==
PROVIDERS: PCP Family Medicine; Visit Provider Internal Medicine Hematology & Oncology
DX: C92.10 Chronic myeloid leukemia, BCR/ABL-positive, not having achieved remission (principal)
CPT/HCPCS: 36415; 80053; 81206; 83615; 84550; 85025

== ENCOUNTER 2020-06-08 12:47 | Outpatient (CLI) | payer MEDICARE, SELFPAY ==
[2020-06-08 13:38] LABS: Abs Immature Grans 0.01 10^3/uL (0.0-0.06); Absolute Basophil Count 0.03 10^3/uL (0.0-0.2); Absolute Eosinophil Count 0.08 10^3/uL (0.0-0.7); Absolute Lymphocyte Count 0.91 10^3/uL (1.2-3.4); Absolute Neutrophil Count 2.38 10^3/uL (1.2-6.7); Basophils % 0.8; Eosinophils % 2.2; HCT 46.8 % (40.0-50.0); HGB 15.2 g/dL (13.5-17.5); Immature Grans % 0.3; Lymphocytes % 24.5; MCH 30.3 pg (27.0-33.0); MCHC 32.5 % (32.0-36.0); MCV 93.2 fL (80-95); MPV 10.6 fL (8.0-11.0); Monocytes % 8.1; Neutrophils % 64.1; Nucleated RBC 0 %; RBC 5.02 10^6/uL (4.36-5.78); RDW 16.4 % (11.8-14.1); RDW-SD 55.4 fL; WBC 3.72 10^3/uL (4.4-10.8)
[2020-06-08 13:48] LABS: Platelet Count 75 10^3/uL (130-400)
[2020-06-08 13:51] LABS: Anisocytosis 1+; Diff Comment PLT Morph Reviewed
[2020-06-08 13:54] LABS: ALT 36 U/L (16-63); AST 27 U/L (15-37); Albumin 3.7 g/dL (3.4-5.0); Alkaline Phosphatase 130 U/L (46-116); Anion Gap 8.2 mmol/L (3-11); BUN 21 mg/dL (7-18); Bilirubin, Total 0.6 mg/dL (0.2-1.0); CO2 25.8 mmol/L (21.0-32.0); CREATININE 1.1 mg/dL (0.70-1.30); Calcium 8.7 mg/dL (8.5-10.1); Chloride 104 mmol/L (98-107); Glucose 97 mg/dL (74-106); LDH 176 U/L (85-227); Potassium 4.9 mmol/L (3.5-5.1); Sodium 138 mmol/L (136-145); Total Protein 7.9 g/dL (6.4-8.2); Uric Acid 4.4 mg/dL (3.5-7.2)
[2020-06-16 13:01] LABS: Indication for Study CML
[2020-06-16 13:04] LABS: Specimen Type Peripheral blood
[2020-06-16 13:05] LABS: BCR-ABL1 p210 FusionTranscript See Comments
[2020-06-16 13:16] LABS: BCR-ABL1 Interpretation See Comments
[2020-06-16 13:17] LABS: Limitations and Disclaimers See Comments
== END 2020-06-08 12:48 | disposition home or self-care (01) ==
PROVIDERS: PCP Family Medicine; Visit Provider Internal Medicine Hematology & Oncology
DX: C92.10 Chronic myeloid leukemia, BCR/ABL-positive, not having achieved remission (principal)
CPT/HCPCS: 36415; 80053; 81206; 83615; 84550; 85025

== ENCOUNTER 2020-07-20 08:55 | Outpatient (CLI) | payer MEDICARE, SELFPAY ==
[2020-07-20 09:18] LABS: Abs Immature Grans 0.02 10^3/uL (0.0-0.06); Absolute Basophil Count 0.02 10^3/uL (0.0-0.2); Absolute Eosinophil Count 0.09 10^3/uL (0.0-0.7); Absolute Lymphocyte Count 1.02 10^3/uL (1.2-3.4); Absolute Monocyte Count 0.19 10^3/uL (0.1-0.8); Basophils % 0.7; HCT 43.3 % (40.0-50.0); HGB 14.3 g/dL (13.5-17.5); Immature Grans % 0.7; Lymphocytes % 33.6; MCH 31.6 pg (27.0-33.0); MCV 95.6 fL (80-95); MPV 10.3 fL (8.0-11.0); Monocytes % 6.3; Neutrophils % 55.7; Nucleated RBC 0 %; RBC 4.53 10^6/uL (4.36-5.78); RDW 19.9 % (11.8-14.1); RDW-SD 69.6 fL; WBC 3.04 10^3/uL (4.4-10.8)
[2020-07-20 09:21] LABS: Absolute Neutrophil Count 1.69 10^3/uL (1.2-6.7)
[2020-07-20 09:43] LABS: Anisocytosis 1+; Diff Comment Diff Reviewed; Macrocytosis 1+; Platelet Count 77 10^3/uL (130-400)
== END 2020-07-20 08:56 | disposition home or self-care (01) ==
PROVIDERS: PCP Family Medicine; Visit Provider Internal Medicine Hematology & Oncology
DX: C92.10 Chronic myeloid leukemia, BCR/ABL-positive, not having achieved remission (principal)
CPT/HCPCS: 36415; 85025

== ENCOUNTER 2020-09-07 12:56 | Outpatient (CLI) | payer MEDICARE, SELFPAY ==
[2020-09-07 13:25] LABS: Abs Immature Grans 0.02 10^3/uL (0.0-0.06); Absolute Basophil Count 0.02 10^3/uL (0.0-0.2); Absolute Eosinophil Count 0.07 10^3/uL (0.0-0.7); Absolute Lymphocyte Count 1.37 10^3/uL (1.2-3.4); Absolute Monocyte Count 0.22 10^3/uL (0.1-0.8); Absolute Neutrophil Count 1.82 10^3/uL (1.2-6.7); Basophils % 0.6; HCT 39.3 % (40.0-50.0); HGB 13.5 g/dL (13.5-17.5); Immature Grans % 0.6; Lymphocytes % 38.9; MCH 34.6 pg (27.0-33.0); MCHC 34.4 % (32.0-36.0); MCV 100.8 fL (80-95); MPV 10.1 fL (8.0-11.0); Monocytes % 6.3; Neutrophils % 51.6; Nucleated RBC 0 %; Platelet Count 93 10^3/uL (130-400); RDW 18.2 % (11.8-14.1); RDW-SD 67.6 fL; WBC 3.52 10^3/uL (4.4-10.8)
[2020-09-07 13:40] LABS: ALT 37 U/L (16-63); AST 30 U/L (15-37); Albumin 3.5 g/dL (3.4-5.0); Alkaline Phosphatase 94 U/L (46-116); Anion Gap 7.4 mmol/L (3-11); BUN 19 mg/dL (7-18); Bilirubin, Total 0.6 mg/dL (0.2-1.0); CO2 26.6 mmol/L (21.0-32.0); CREATININE 1.2 mg/dL (0.70-1.30); Calcium 8.4 mg/dL (8.5-10.1); Chloride 106 mmol/L (98-107); Estimated GFR 58.86 (mL/min/1.73m2); Glucose 127 mg/dL (74-106); LDH 208 U/L (85-227); Potassium 4.4 mmol/L (3.5-5.1); Sodium 140 mmol/L (136-145); Total Protein 7.4 g/dL (6.4-8.2); Uric Acid 5.5 mg/dL (3.5-7.2)
[2020-09-15 09:58] LABS: Indication for Study CML
[2020-09-15 09:59] LABS: Specimen Type Peripheral blood
[2020-09-15 10:00] LABS: BCR-ABL1 p210 FusionTranscript See Comments
[2020-09-15 10:03] LABS: BCR-ABL1 Interpretation See Comments; Limitations and Disclaimers See Comments
== END 2020-09-07 12:57 | disposition home or self-care (01) ==
LOC: LBO 12:57
PROVIDERS: PCP Family Medicine; Visit Provider Internal Medicine Hematology & Oncology
DX: C92.10 Chronic myeloid leukemia, BCR/ABL-positive, not having achieved remission (principal)
CPT/HCPCS: 36415; 80053; 81206; 83615; 84550; 85025

== ENCOUNTER 2020-11-01 14:15 | Outpatient (CLI) | payer MEDICARE, SELFPAY ==
[2020-11-01 15:10] LABS: Abs Immature Grans 0.02 10^3/uL (0.0-0.06); Absolute Basophil Count 0.02 10^3/uL (0.0-0.2); Absolute Eosinophil Count 0.07 10^3/uL (0.0-0.7); Absolute Lymphocyte Count 0.81 10^3/uL (1.2-3.4); Absolute Monocyte Count 0.14 10^3/uL (0.1-0.8); Absolute Neutrophil Count 3.29 10^3/uL (1.2-6.7); Basophils % 0.5; Eosinophils % 1.6; HCT 40.7 % (40.0-50.0); HGB 13.5 g/dL (13.5-17.5); Immature Grans % 0.5; Lymphocytes % 18.6; MCH 35.2 pg (27.0-33.0); MCHC 33.2 % (32.0-36.0); MCV 106.3 fL (80-95); MPV 10.9 fL (8.0-11.0); Monocytes % 3.2; Neutrophils % 75.6; Nucleated RBC 0 %; Platelet Count 110 10^3/uL (130-400); RBC 3.83 10^6/uL (4.36-5.78); RDW 15.8 % (11.8-14.1); WBC 4.35 10^3/uL (4.4-10.8)
[2020-11-01 15:31] LABS: Anisocytosis 1+; Diff Comment Diff Reviewed; Macrocytosis 2+
[2020-11-01 15:32] LABS: Poikilocytes 1+
[2020-11-01 16:01] LABS: ALT 37 U/L (16-63); AST 36 U/L (15-37); Albumin 3.7 g/dL (3.4-5.0); Alkaline Phosphatase 73 U/L (46-116); Anion Gap 10.8 mmol/L (3-11); BUN 18 mg/dL (7-18); Bilirubin, Total 0.5 mg/dL (0.2-1.0); CO2 25.2 mmol/L (21.0-32.0); CREATININE 1.2 mg/dL (0.70-1.30); Calcium 8.6 mg/dL (8.5-10.1); Chloride 106 mmol/L (98-107); Estimated GFR 58.86 (mL/min/1.73m2); Glucose 148 mg/dL (74-106); LDH 221 U/L (85-227); Potassium 4.4 mmol/L (3.5-5.1); Sodium 142 mmol/L (136-145); Uric Acid 6.5 mg/dL (3.5-7.2)
[2020-11-08 11:16] LABS: Indication for Study CML
[2020-11-08 11:17] LABS: Specimen Type Peripheral blood
[2020-11-08 11:18] LABS: BCR-ABL1 p210 FusionTranscript See Comments
[2020-11-08 11:19] LABS: BCR-ABL1 Interpretation See Comments; Limitations and Disclaimers See Comments
== END 2020-11-01 14:16 | disposition home or self-care (01) ==
LOC: LBO 14:17
PROVIDERS: PCP Family Medicine; Visit Provider Internal Medicine Hematology & Oncology
DX: C92.10 Chronic myeloid leukemia, BCR/ABL-positive, not having achieved remission (principal)
CPT/HCPCS: 36415; 80053; 81206; 83615; 84550; 85025

== ENCOUNTER 2020-11-09 12:07 | Outpatient (CLI) | payer MEDICARE, SELFPAY ==
[2020-11-16 10:45] LABS: Misc Referral (MAYO) See Comments
== END 2020-11-09 12:08 | disposition home or self-care (01) ==
LOC: LBO 12:09
PROVIDERS: PCP Family Medicine; Visit Provider Internal Medicine Hematology & Oncology
DX: C92.10 Chronic myeloid leukemia, BCR/ABL-positive, not having achieved remission (principal)
CPT/HCPCS: 36415

== ENCOUNTER 2020-12-14 03:13 | Outpatient (CLI) | payer MEDICARE, SELFPAY ==
[2020-12-14 12:17] LABS: Abs Immature Grans 0.01 10^3/uL (0.0-0.06); Absolute Basophil Count 0.02 10^3/uL (0.0-0.2); Absolute Eosinophil Count 0.06 10^3/uL (0.0-0.7); Absolute Lymphocyte Count 0.82 10^3/uL (1.2-3.4); Absolute Monocyte Count 0.25 10^3/uL (0.1-0.8); Absolute Neutrophil Count 2.08 10^3/uL (1.2-6.7); Basophils % 0.6; Eosinophils % 1.9; HCT 39.6 % (40.0-50.0); HGB 13.1 g/dL (13.5-17.5); Immature Grans % 0.3; Lymphocytes % 25.3; MCH 35.2 pg (27.0-33.0); MCHC 33.1 % (32.0-36.0); MCV 106.5 fL (80-95); MPV 10.2 fL (8.0-11.0); Monocytes % 7.7; Neutrophils % 64.2; Nucleated RBC 0 %; Platelet Count 100 10^3/uL (130-400); RBC 3.72 10^6/uL (4.36-5.78); RDW 15.1 % (11.8-14.1); RDW-SD 60.4 fL; WBC 3.24 10^3/uL (4.4-10.8)
[2020-12-14 12:33] LABS: Diff Comment Diff Reviewed
[2020-12-14 12:34] LABS: Macrocytosis 1+
[2020-12-14 12:42] LABS: ALT 54 U/L (16-63); AST 44 U/L (15-37); Albumin 3.8 g/dL (3.4-5.0); Alkaline Phosphatase 70 U/L (46-116); Anion Gap 8.1 mmol/L (3-11); BUN 12 mg/dL (7-18); Bilirubin, Total 0.6 mg/dL (0.2-1.0); CO2 24.9 mmol/L (21.0-32.0); CREATININE 1.2 mg/dL (0.70-1.30); Calcium 8.8 mg/dL (8.5-10.1); Chloride 106 mmol/L (98-107); Estimated GFR 58.71 (mL/min/1.73m2); Glucose 103 mg/dL (74-106); LDH 207 U/L (85-227); Potassium 4.5 mmol/L (3.5-5.1); Sodium 139 mmol/L (136-145); Uric Acid 5.8 mg/dL (3.5-7.2)
[2020-12-14 12:45] LABS: Hemoglobin A1C 5.2 % (<5.7)
[2020-12-14 13:10] LABS: Magnesium 2.1 mg/dL (1.8-2.4)
[2020-12-14 13:40] LABS: Folate 14.7 ng/mL (8.6-20.0); Vitamin B12 397 pg/mL (193-986)
[2020-12-20 10:39] LABS: Indication for Study CML; Limitations and Disclaimers See Comments; Specimen Type Blood
[2020-12-20 10:40] LABS: BCR-ABL1 Interpretation See Comments; BCR-ABL1 p210 FusionTranscript See Comments
== END 2020-12-14 03:14 | disposition home or self-care (01) ==
LOC: LBO 03:13
PROVIDERS: PCP Family Medicine; Visit Provider Internal Medicine Hematology & Oncology
DX: C92.10 Chronic myeloid leukemia, BCR/ABL-positive, not having achieved remission (principal); R25.2 Cramp and spasm; R71.8 Other abnormality of red blood cells; Z79.899 Other long term (current) drug therapy
CPT/HCPCS: 36415; 80053; 81206; 82607; 82746; 83036; 83615; 83735; 84550; 85025

== ENCOUNTER 2021-01-04 03:55 | Outpatient (CLI) | payer MEDICARE, SELFPAY ==
[2021-01-04 10:20] LABS: Abs Immature Grans 0.02 10^3/uL (0.0-0.06); Absolute Basophil Count 0.02 10^3/uL (0.0-0.2); Absolute Eosinophil Count 0.04 10^3/uL (0.0-0.7); Absolute Lymphocyte Count 0.96 10^3/uL (1.2-3.4); Basophils % 0.6; Eosinophils % 1.2; HCT 37.7 % (40.0-50.0); HGB 12.4 g/dL (13.5-17.5); Immature Grans % 0.6; Lymphocytes % 28.7; MCH 34.8 pg (27.0-33.0); MCHC 32.9 % (32.0-36.0); MCV 105.9 fL (80-95); MPV 10.4 fL (8.0-11.0); Neutrophils % 62.9; Nucleated RBC 0 %; RBC 3.56 10^6/uL (4.36-5.78); RDW 15.5 % (11.8-14.1); RDW-SD 60.7 fL; WBC 3.34 10^3/uL (4.4-10.8)
[2021-01-04 10:39] LABS: Diff Comment Diff Reviewed; Macrocytosis 2+; Platelet Count 98 10^3/uL (130-400)
[2021-01-04 11:27] LABS: ALT 47 U/L (16-63); AST 35 U/L (15-37); Albumin 3.7 g/dL (3.4-5.0); Alkaline Phosphatase 72 U/L (46-116); Anion Gap 7.7 mmol/L (3-11); BUN 14 mg/dL (7-18); Bilirubin, Total 0.6 mg/dL (0.2-1.0); CO2 27.3 mmol/L (21.0-32.0); CREATININE 1.2 mg/dL (0.70-1.30); Calcium 8.9 mg/dL (8.5-10.1); Chloride 106 mmol/L (98-107); Estimated GFR 58.71 (mL/min/1.73m2); Glucose 131 mg/dL (74-106); LDH 207 U/L (85-227); Potassium 4.3 mmol/L (3.5-5.1); Sodium 141 mmol/L (136-145); Total Protein 7.5 g/dL (6.4-8.2)
[2021-01-12 16:44] LABS: Indication for Study CML
[2021-01-12 16:50] LABS: Specimen Type Blood
[2021-01-12 16:52] LABS: BCR-ABL1 Interpretation See Comments; BCR-ABL1 p210 FusionTranscript See Comments; Limitations and Disclaimers See Comments
== END 2021-01-04 03:56 | disposition home or self-care (01) ==
LOC: LBO 03:56
PROVIDERS: PCP Family Medicine; Visit Provider Internal Medicine Hematology & Oncology
DX: C92.10 Chronic myeloid leukemia, BCR/ABL-positive, not having achieved remission (principal)
CPT/HCPCS: 36415; 80053; 81206; 83615; 84550; 85025

== ENCOUNTER 2021-01-25 02:37 | Outpatient (CLI) | payer MEDICARE, SELFPAY ==
[2021-01-25 10:13] LABS: Abs Immature Grans 0.03 10^3/uL (0.0-0.06); Absolute Basophil Count 0.02 10^3/uL (0.0-0.2); Absolute Eosinophil Count 0.02 10^3/uL (0.0-0.7); Absolute Lymphocyte Count 0.76 10^3/uL (1.2-3.4); Absolute Neutrophil Count 2.17 10^3/uL (1.2-6.7); Basophils % 0.6; Eosinophils % 0.6; HCT 37.5 % (40.0-50.0); HGB 12.1 g/dL (13.5-17.5); Immature Grans % 0.9; Lymphocytes % 23.8; MCH 34.7 pg (27.0-33.0); MCHC 32.3 % (32.0-36.0); MCV 107.4 fL (80-95); MPV 10.5 fL (8.0-11.0); Monocytes % 6.3; Neutrophils % 67.8; Nucleated RBC 0 %; Platelet Count 85 10^3/uL (130-400); RBC 3.49 10^6/uL (4.36-5.78); RDW-SD 63.3 fL
[2021-01-25 10:35] LABS: Diff Comment Diff Reviewed
[2021-01-25 10:36] LABS: Macrocytosis 2+
[2021-01-25 10:37] LABS: ALT 54 U/L (16-63); AST 41 U/L (15-37); Albumin 3.7 g/dL (3.4-5.0); Alkaline Phosphatase 72 U/L (46-116); Anion Gap 11.7 mmol/L (3-11); BUN 15 mg/dL (7-18); Bilirubin, Total 0.5 mg/dL (0.2-1.0); CO2 23.3 mmol/L (21.0-32.0); CREATININE 1.1 mg/dL (0.70-1.30); Calcium 8.7 mg/dL (8.5-10.1); Chloride 106 mmol/L (98-107); Glucose 117 mg/dL (74-106); Potassium 3.8 mmol/L (3.5-5.1); Sodium 141 mmol/L (136-145); Total Protein 8.2 g/dL (6.4-8.2)
== END 2021-01-25 02:38 | disposition home or self-care (01) ==
LOC: LBO 02:37
PROVIDERS: PCP Family Medicine; Visit Provider Internal Medicine Hematology & Oncology
DX: C92.10 Chronic myeloid leukemia, BCR/ABL-positive, not having achieved remission (principal)
CPT/HCPCS: 36415; 80053; 85025

== ENCOUNTER 2021-03-29 03:30 | Outpatient (CLI) | payer MEDICARE, SELFPAY ==
[2021-03-29 13:09] LABS: Abs Immature Grans 0.03 10^3/uL (0.0-0.06); Absolute Basophil Count 0.01 10^3/uL (0.0-0.2); Absolute Eosinophil Count 0.03 10^3/uL (0.0-0.7); Absolute Lymphocyte Count 0.84 10^3/uL (1.2-3.4); Absolute Monocyte Count 0.31 10^3/uL (0.1-0.8); Absolute Neutrophil Count 1.88 10^3/uL (1.2-6.7); Basophils % 0.3; HCT 31.2 % (40.0-50.0); HGB 9.8 g/dL (13.5-17.5); Lymphocytes % 27.1; MCH 33.6 pg (27.0-33.0); MCHC 31.4 % (32.0-36.0); MCV 106.8 fL (80-95); MPV 10.5 fL (8.0-11.0); Neutrophils % 60.6; Nucleated RBC 0 %; Platelet Count 86 10^3/uL (130-400); RBC 2.92 10^6/uL (4.36-5.78); RDW 18.6 % (11.8-14.1); RDW-SD 72.3 fL
[2021-03-29 13:20] LABS: ALT 36 U/L (16-63); AST 36 U/L (15-37); Albumin 3.6 g/dL (3.4-5.0); Alkaline Phosphatase 70 U/L (46-116); Anion Gap 10.4 mmol/L (3-11); BUN 16 mg/dL (7-18); Bilirubin, Total 0.6 mg/dL (0.2-1.0); CO2 23.6 mmol/L (21.0-32.0); Calcium 8.7 mg/dL (8.5-10.1); Chloride 104 mmol/L (98-107); Glucose 94 mg/dL (74-106); Potassium 4.2 mmol/L (3.5-5.1); Sodium 138 mmol/L (136-145); Total Protein 7.8 g/dL (6.4-8.2)
[2021-03-29 13:26] LABS: Diff Comment Diff Reviewed; Macrocytosis 2+
[2021-04-04 12:44] LABS: BCR/ABL1, p210 Result see interpretation; Specimen Type BLOOD
== END 2021-03-29 03:31 | disposition home or self-care (01) ==
LOC: LBO 03:30
PROVIDERS: PCP Family Medicine; Visit Provider Internal Medicine Hematology & Oncology
DX: C92.10 Chronic myeloid leukemia, BCR/ABL-positive, not having achieved remission (principal)
CPT/HCPCS: 36415; 80053; 81206; 85025

== ENCOUNTER 2021-06-07 04:19 | Outpatient (CLI) | payer MEDICARE, SELFPAY ==
[2021-06-07 13:12] LABS: Abs Immature Grans 0.02 10^3/uL (0.0-0.06); Absolute Basophil Count 0.02 10^3/uL (0.0-0.2); Absolute Eosinophil Count 0.01 10^3/uL (0.0-0.7); Absolute Lymphocyte Count 0.59 10^3/uL (1.2-3.4); Absolute Monocyte Count 0.19 10^3/uL (0.1-0.8); Basophils % 0.8; Eosinophils % 0.4; HCT 32.7 % (40.0-50.0); HGB 10.5 g/dL (13.5-17.5); Immature Grans % 0.8; Lymphocytes % 23.3; MCH 34.2 pg (27.0-33.0); MCHC 32.1 % (32.0-36.0); MCV 106.5 fL (80-95); Monocytes % 7.5; Neutrophils % 67.2; Nucleated RBC 0 %; RBC 3.07 10^6/uL (4.36-5.78); RDW 18.6 % (11.8-14.1); RDW-SD 73.6 fL; WBC 2.53 10^3/uL (4.4-10.8)
[2021-06-07 13:25] LABS: ALT 35 U/L (16-63); AST 41 U/L (15-37); Albumin 3.5 g/dL (3.4-5.0); Alkaline Phosphatase 72 U/L (46-116); BUN 13 mg/dL (7-18); Bilirubin, Total 0.6 mg/dL (0.2-1.0); Calcium 8.6 mg/dL (8.5-10.1); Chloride 105 mmol/L (98-107); Glucose 107 mg/dL (74-106); Potassium 3.5 mmol/L (3.5-5.1); Sodium 140 mmol/L (136-145); Total Protein 8.1 g/dL (6.4-8.2)
[2021-06-07 13:27] LABS: Diff Comment RBC Morph Reviewed; Macrocytosis 2+; Platelet Count 79 10^3/uL (130-400)
[2021-06-12 16:31] LABS: BCR/ABL1, p210 Result see interpretation; Specimen Type Whole Blood
== END 2021-06-07 04:20 | disposition home or self-care (01) ==
LOC: LBO 04:19
PROVIDERS: PCP Family Medicine; Visit Provider Internal Medicine Hematology & Oncology
DX: C92.10 Chronic myeloid leukemia, BCR/ABL-positive, not having achieved remission (principal)
CPT/HCPCS: 36415; 80053; 81206; 85025

== ENCOUNTER 2021-08-30 03:16 | Outpatient (CLI) | payer MEDICARE, SELFPAY ==
[2021-08-30 11:10] LABS: Abs Immature Grans 0.03 10^3/uL (0.0-0.06); Absolute Basophil Count 0.02 10^3/uL (0.0-0.2); Absolute Eosinophil Count 0.04 10^3/uL (0.0-0.7); Absolute Lymphocyte Count 1.33 10^3/uL (1.2-3.4); Absolute Monocyte Count 0.23 10^3/uL (0.1-0.8); Absolute Neutrophil Count 1.86 10^3/uL (1.2-6.7); Basophils % 0.6; Eosinophils % 1.1; HCT 34.7 % (40.0-50.0); Immature Grans % 0.9; Lymphocytes % 37.9; MCHC 31.7 % (32.0-36.0); MCV 107 fL (80-95); MPV 10.6 fL (8.0-11.0); Monocytes % 6.6; Neutrophils % 52.9; Platelet Count 124 10^3/uL (130-400); RBC 3.24 10^6/uL (4.36-5.78); RDW 17.7 % (11.8-14.1); WBC 3.51 10^3/uL (4.4-10.8)
[2021-08-30 11:22] LABS: Diff Comment RBC Morph Reviewed
[2021-08-30 11:23] LABS: Macrocytosis 2+; Polychromasia Present
[2021-08-30 11:34] LABS: ALT 40 U/L (16-63); AST 31 U/L (15-37); Albumin 3.7 g/dL (3.4-5.0); Alkaline Phosphatase 62 U/L (46-116); Anion Gap 8.1 mmol/L (3-11); BUN 22 mg/dL (7-18); Bilirubin, Total 0.4 mg/dL (0.2-1.0); CO2 25.9 mmol/L (21.0-32.0); Calcium 8.8 mg/dL (8.5-10.1); Chloride 107 mmol/L (98-107); Glucose 107 mg/dL (74-106); Potassium 3.9 mmol/L (3.5-5.1); Sodium 141 mmol/L (136-145); Total Protein 7.8 g/dL (6.4-8.2)
[2021-09-10 12:12] LABS: Indication for Study CML
[2021-09-10 12:13] LABS: Specimen Type Peripheral blood
[2021-09-10 12:14] LABS: BCR-ABL1 p210 FusionTranscript See Comments
[2021-09-10 12:18] LABS: BCR-ABL1 Interpretation See Comments; Limitations and Disclaimers See Comments
== END 2021-08-30 03:17 | disposition home or self-care (01) ==
LOC: LBO 03:16
PROVIDERS: PCP Family Medicine; Visit Provider Internal Medicine Hematology & Oncology
DX: C92.10 Chronic myeloid leukemia, BCR/ABL-positive, not having achieved remission (principal); C50.421 Malignant neoplasm of upper-outer quadrant of right male breast; Z17.1 Estrogen receptor negative status [ER-]
CPT/HCPCS: 36415; 80053; 81206; 85025

== ENCOUNTER 2021-12-06 04:47 | Outpatient (CLI) | payer MEDICARE, SELFPAY ==
[2021-12-06 10:23] LABS: Abs Immature Grans 0.03 10^3/uL (0.0-0.06); Absolute Basophil Count 0.02 10^3/uL (0.0-0.2); Absolute Eosinophil Count 0.04 10^3/uL (0.0-0.7); Absolute Lymphocyte Count 0.91 10^3/uL (1.2-3.4); Absolute Monocyte Count 0.25 10^3/uL (0.1-0.8); Absolute Neutrophil Count 1.51 10^3/uL (1.2-6.7); Basophils % 0.7; Eosinophils % 1.4; HCT 38.3 % (40.0-50.0); HGB 12.4 g/dL (13.5-17.5); Immature Grans % 1.1; MCH 33.5 pg (27.0-33.0); MCHC 32.4 % (32.0-36.0); MCV 104 fL (80-95); MPV 11.4 fL (8.0-11.0); Monocytes % 9.1; Neutrophils % 54.7; Platelet Count 126 10^3/uL (130-400); RDW 17.7 % (11.8-14.1); RDW-SD 67.1 fL; WBC 2.76 10^3/uL (4.4-10.8)
[2021-12-06 12:31] LABS: ALT 31 U/L (16-63); AST 29 U/L (15-37); Albumin 3.7 g/dL (3.4-5.0); Alkaline Phosphatase 56 U/L (46-116); Anion Gap 9.7 mmol/L (3-11); BUN 16 mg/dL (7-18); Bilirubin, Total 0.5 mg/dL (0.2-1.0); CO2 27.3 mmol/L (21.0-32.0); CREATININE 1.1 mg/dL (0.70-1.30); Calcium 9.1 mg/dL (8.5-10.1); Chloride 104 mmol/L (98-107); Estimated GFR 68.71 (mL/min/1.73m2); Glucose 97 mg/dL (74-106); Potassium 4.4 mmol/L (3.5-5.1); Sodium 141 mmol/L (136-145); Total Protein 8.2 g/dL (6.4-8.2)
[2021-12-07 13:35] LABS: Folate 7.9 ng/mL (8.6-20.0); TSH (W/Ref FT4) 3.19 uIU/mL (0.36-3.74); Vitamin B12 214 pg/mL (193-986)
[2021-12-14 08:29] LABS: Indication for Study CML
[2021-12-14 08:33] LABS: Specimen Type Peripheral blood
[2021-12-14 08:36] LABS: BCR-ABL1 p210 FusionTranscript See Comments
[2021-12-14 08:37] LABS: Limitations and Disclaimers See Comments
[2021-12-14 08:49] LABS: BCR-ABL1 Interpretation See Comments
== END 2021-12-06 04:48 | disposition home or self-care (01) ==
LOC: LBO 04:47
PROVIDERS: PCP Family Medicine; Visit Provider Internal Medicine Hematology & Oncology
DX: C92.10 Chronic myeloid leukemia, BCR/ABL-positive, not having achieved remission (principal); R53.83 Other fatigue
CPT/HCPCS: 36415; 80053; 81206; 82607; 82746; 84443; 85025

== ENCOUNTER 2021-12-11 19:32 | Outpatient (REF) | payer MEDICARE, SELFPAY ==
[2021-12-11 22:58] LABS: PSA, Screening 0.4 ng/mL (<=6.5)
== END 2021-12-11 19:33 | disposition home or self-care (01) ==
LOC: NCHCN 19:32
PROVIDERS: PCP Family Medicine; Visit Provider Family Medicine
DX: R53.83 Other fatigue (principal); Z12.5 Encounter for screening for malignant neoplasm of prostate
CPT/HCPCS: 84153

== ENCOUNTER 2022-03-07 03:51 | Outpatient (CLI) | payer MEDICARE, SELFPAY ==
[2022-03-07 11:17] LABS: Abs Immature Grans 0.03 10^3/uL (0.0-0.06); Absolute Basophil Count 0.02 10^3/uL (0.0-0.2); Absolute Eosinophil Count 0.02 10^3/uL (0.0-0.7); Absolute Lymphocyte Count 0.61 10^3/uL (1.2-3.4); Absolute Neutrophil Count 2.04 10^3/uL (1.2-6.7); Basophils % 0.7; Eosinophils % 0.7; HCT 34.5 % (40.0-50.0); Lymphocytes % 20.9; MCH 32.9 pg (27.0-33.0); MCHC 31.9 % (32.0-36.0); MCV 103 fL (80-95); MPV 9.7 fL (8.0-11.0); Monocytes % 6.8; Neutrophils % 69.9; Platelet Count 136 10^3/uL (130-400); RBC 3.34 10^6/uL (4.36-5.78); RDW 22.2 % (11.8-14.1); RDW-SD 82.7 fL; WBC 2.92 10^3/uL (4.4-10.8)
[2022-03-07 11:26] LABS: Anisocytosis 2+; Diff Comment RBC Morph Reviewed
[2022-03-07 11:30] LABS: ALT 24 U/L (16-63); AST 32 U/L (15-37); Albumin 3.1 g/dL (3.4-5.0); Alkaline Phosphatase 73 U/L (46-116); Anion Gap 6.6 mmol/L (3-11); BUN 16 mg/dL (7-18); Bilirubin, Total 0.4 mg/dL (0.2-1.0); CO2 26.4 mmol/L (21.0-32.0); CREATININE 1.1 mg/dL (0.70-1.30); Calcium 8.6 mg/dL (8.5-10.1); Chloride 104 mmol/L (98-107); Estimated GFR 68.71 (mL/min/1.73m2); Glucose 89 mg/dL (74-106); Potassium 3.7 mmol/L (3.5-5.1); Sodium 137 mmol/L (136-145); Total Protein 7.5 g/dL (6.4-8.2)
[2022-03-08 23:05] LABS: Ferritin 540 ng/mL (26-388)
[2022-03-12 09:21] LABS: Indication for Study CML
[2022-03-12 09:22] LABS: Specimen Type Peripheral blood
[2022-03-12 09:23] LABS: BCR-ABL1 p210 FusionTranscript See Comments
[2022-03-12 09:27] LABS: BCR-ABL1 Interpretation See Comments
[2022-03-12 09:47] LABS: Limitations and Disclaimers See Comments
== END 2022-03-07 03:52 | disposition home or self-care (01) ==
LOC: LBO 03:51
PROVIDERS: PCP Family Medicine; Visit Provider Internal Medicine Hematology & Oncology
DX: C92.10 Chronic myeloid leukemia, BCR/ABL-positive, not having achieved remission (principal); M25.50 Pain in unspecified joint
CPT/HCPCS: 36415; 80053; 81206; 82728; 85025

== ENCOUNTER → 2022-03-21 13:15 | Outpatient (CLI) | payer MEDICARE, SELFPAY ==
--- NOTE | 2022-03-21 | DI.RAD_ITS ---
Exam(s) XR CHEST 2V PA LATERAL EXAM: XR CHEST 2V PA LATERAL CLINICAL HISTORY: CHRONIC MYELOCYTIC LEUKEMIA C92.10 SOB R06.02 TECHNIQUE: 2D digital imaging was performed of the chest. Two images were obtained. PA and lateral views were obtained. COMPARISON: CR CHEST 2 VIEWS PA,LAT from 07/31/[address] CHEST PE CTA from 12/30/2019 FINDINGS: MEDIASTINUM: Normal. HEART: Normal. PULMONARY VASCULATURE: Normal. LUNGS: Clear. PLEURAL SPACE: There is a small left pleural effusion. There is blunting of the right costophrenic a ngle suggesting a tiny right pleural effusion. No pneumothorax is present. BONE:Within normal limits for the patient's age. OTHER FINDINGS:Normal. IMPRESSION: Small left pleural effusion. DATA REPOSITORY: RADIATION DOSE DELIVERED:
== END ==
PROVIDERS: PCP Family Medicine; Visit Provider Nurse Practitioner Family
DX: J90 Pleural effusion, not elsewhere classified (principal); C92.10 Chronic myeloid leukemia, BCR/ABL-positive, not having achieved remission
CPT/HCPCS: 71046

== ENCOUNTER 2022-04-16 01:30 | Outpatient (CLI) | payer MEDICARE, SELFPAY ==
--- NOTE | 2022-04-16 | DI.CT_ITS ---
Exam(s) CT CHEST/ABD/PEL W EXAM: CT CHEST/ABD/PEL W CLINICAL HISTORY: CHRONIC MYELOCYTIC LEUKEMIA,C92.10,ASSESS TREATMENT RESPONSE TECHNIQUE: Imaging Protocol: Axial computed tomography images with coronal and sagittal reformatted images were created and reviewed CONTRAST MATERIAL: Intravenous: Omnipaque 350 contrast volume:100 mL Oral: Yes COMPARISON: CT CT ANGIO CHEST from 03/10/[address] ANGIO CHEST from 01/16/[address] ABD/PELVIS WO CONTRAST from 12/14/[address] CHEST PE CTA from 12/30/2019 FINDINGS: CHEST: Tracheobronchial tree: Patent where visualized. Pulmonary parenchyma: There is an small area of consolidation with bronchiectasis in the left lingula inferiorly. No suspicious pulmonary nodules are identified. Visualized thyroid gland: Unremarkable. Mediastinum and Marisa: No dominant adenopathy or fluid collection. The esophagus is unremarkable. Pleura: There is a small to moderate left pleural effusion. No right pleural effusion. No pneumotho rax. Heart: The heart is not dilated. Coronary artery calcifications are present. There is a pericardial effusion present measuring up to 1.8 cm in thickness. Pulmonary arteries: No pulmonary emboli are identified. Aorta: The ascending thoracic aorta measures 4.6 x 4.5 cm. Atherosclerosis is present. Lymph nodes: Within normal limits. Soft tissues: Unremarkable. Bones:Within normal limits for the patient's age. ABDOMEN: Liver: Normal density. No measurable mass. Portal, Superior Mesenteric, and Splenic Veins: Unremarkable. Gallbladder and Biliary Tract: No radiodense calculus or dilation. Pancreas: Normal density, no abnormal calcifications or inflammatory process. Spleen: Normal. Adrenals: No masses seen. Kidneys: Normal size, contour and axis. No radiodense stones or obstructive uropathy. There are few t iny hypodensities in the right kidney. They are too small for further characterization but may refle ct small cysts. Abdominal Aorta: Abdominal portion non-dilated. Atherosclerosis. Bowel: No obstruction or bowel wall thickening. Appendix is unremarkable. Peritoneal Cavity: No ascites, collection or mesenteric inflammatory response. No free air. Lymph Nodes: Within normal limits. Bones: Within normal limits for the patient's age. Soft Tissues: Unremarkable. PELVIS: Bladder: Symmetric distention, no gross wall thickening. Reproductive Organs: Mildly enlarged prostate gland. Lymph Nodes: Within normal limits. Bones: Within normal limits. IMPRESSION: 1. Interval development of a small pericardial effusion and small to moderate size left pleural effus ion. 2. Small area of consolidation in the left lingula. 3. 4.6 x 4.5 cm ascending thoracic aorta. This compares to 4.4 on the prior examination. 4. No significant abdominal or pelvic adenopathy. No acute abdominal pelvic process. RADIATION DOSE DELIVERED: 2,994.8mGy.cm Total DLP DATA REPOSITORY: All CT scans at this facility are submitted to the National Radiology Data Registry (NRDR) Dose Index Registry (DIR) with the [employer] (ACR). RADIATION OPTIMIZATION: All CT scans at this facility use at least one of these dose optimization te chniques: automated exposure control; mA and/or kV adjustment per patient size (includes targeted exa ms where dose is matched to clinical indication); or iterative reconstruction.
[2022-04-16] MEDS: Barium Sulfate 2% W/V-Berry Smoothie 450 ML BTL PO (11:47)
[2022-04-16 12:14] LABS: Abs Immature Grans 0.02 10^3/uL (0.0-0.06); Absolute Basophil Count 0.02 10^3/uL (0.0-0.2); Absolute Eosinophil Count 0.07 10^3/uL (0.0-0.7); Absolute Lymphocyte Count 0.91 10^3/uL (1.2-3.4); Absolute Monocyte Count 0.16 10^3/uL (0.1-0.8); Absolute Neutrophil Count 1.81 10^3/uL (1.2-6.7); Basophils % 0.7; Eosinophils % 2.3; HCT 38.4 % (40.0-50.0); HGB 12.2 g/dL (13.5-17.5); Immature Grans % 0.7; Lymphocytes % 30.4; MCH 33.9 pg (27.0-33.0); MCHC 31.8 % (32.0-36.0); MCV 107 fL (80-95); MPV 11.7 fL (8.0-11.0); Monocytes % 5.4; Neutrophils % 60.5; Platelet Count 152 10^3/uL (130-400); RDW 19.3 % (11.8-14.1); RDW-SD 76.3 fL; WBC 2.99 10^3/uL (4.4-10.8)
[2022-04-16 12:29] LABS: ALT 36 U/L (16-63); AST 39 U/L (15-37); Albumin 3.7 g/dL (3.4-5.0); Alkaline Phosphatase 64 U/L (46-116); Anion Gap 7.3 mmol/L (3-11); BUN 18 mg/dL (7-18); Bilirubin, Total 0.5 mg/dL (0.2-1.0); CO2 27.7 mmol/L (21.0-32.0); Calcium 9.3 mg/dL (8.5-10.1); Chloride 104 mmol/L (98-107); Estimated GFR 77.04 (mL/min/1.73m2); Glucose 101 mg/dL (74-106); Potassium 4.2 mmol/L (3.5-5.1); Sodium 139 mmol/L (136-145); Total Protein 8.3 g/dL (6.4-8.2)
[2022-04-16 12:48] LABS: Folate 10.5 ng/mL (8.6-20.0)
[2022-04-16] MEDS: Omnipaque 350 MG/ML 500 ML BTL-Imaging package IJ (13:53)
[2022-04-16] MEDS: Normal Saline - Diluent 50 ML VIAL IJ (13:54)
[2022-05-15 09:20] LABS: Indication for Study CML
[2022-05-15 09:21] LABS: Specimen Type Blood
[2022-05-15 09:22] LABS: BCR-ABL1 p210 FusionTranscript See Comments
[2022-05-15 09:29] LABS: BCR-ABL1 Interpretation See Comments
[2022-05-15 09:31] LABS: Limitations and Disclaimers See Comments
== END 2022-04-16 01:50 ==
LOC: DI 01:30
PROVIDERS: Internal Medicine Hematology & Oncology; PCP Family Medicine; Visit Provider Nurse Practitioner Family
DX: C92.10 Chronic myeloid leukemia, BCR/ABL-positive, not having achieved remission (principal); J90 Pleural effusion, not elsewhere classified
CPT/HCPCS: 74177; 80053; 81206; 71260; 82746; 85025

== ENCOUNTER 2022-05-30 02:57 | Outpatient (CLI) | payer MEDICARE, SELFPAY ==
[2022-05-30 13:52] LABS: Abs Immature Grans 0.03 10^3/uL (0.0-0.06); Absolute Basophil Count 0.03 10^3/uL (0.0-0.2); Absolute Eosinophil Count 0.06 10^3/uL (0.0-0.7); Absolute Lymphocyte Count 0.99 10^3/uL (1.2-3.4); Absolute Monocyte Count 0.19 10^3/uL (0.1-0.8); Basophils % 0.9; Eosinophils % 1.7; HCT 40.9 % (40.0-50.0); HGB 13.1 g/dL (13.5-17.5); Immature Grans % 0.9; Lymphocytes % 28.3; MCH 33.4 pg (27.0-33.0); MCV 104 fL (80-95); MPV 12.4 fL (8.0-11.0); Monocytes % 5.4; Neutrophils % 62.8; Platelet Count 121 10^3/uL (130-400); RBC 3.92 10^6/uL (4.36-5.78); RDW 15.1 % (11.8-14.1); RDW-SD 58.4 fL
[2022-05-30 14:35] LABS: ALT 31 U/L (16-63); AST 29 U/L (15-37); Albumin 3.5 g/dL (3.4-5.0); Alkaline Phosphatase 66 U/L (46-116); Anion Gap 10.5 mmol/L (3-11); BUN 26 mg/dL (7-18); Bilirubin, Total 0.4 mg/dL (0.2-1.0); CO2 24.5 mmol/L (21.0-32.0); Calcium 9.4 mg/dL (8.5-10.1); Chloride 105 mmol/L (98-107); Estimated GFR 77.04 (mL/min/1.73m2); Glucose 120 mg/dL (74-106); Potassium 4.2 mmol/L (3.5-5.1); Sodium 140 mmol/L (136-145)
[2022-06-03 12:50] LABS: BCR/ABL1, p210 Result see interpretation; Specimen Type EDTA Whole Blood
== END 2022-05-30 02:58 | disposition home or self-care (01) ==
PROVIDERS: PCP Family Medicine; Visit Provider Nurse Practitioner Family
DX: C92.10 Chronic myeloid leukemia, BCR/ABL-positive, not having achieved remission (principal)
CPT/HCPCS: 36415; 80053; 81206; 85025

== ENCOUNTER 2022-07-01 01:25 | Outpatient (CLI) | payer MEDICARE, SELFPAY ==
--- NOTE | 2022-07-01 12:00 | DI.RAD_ITS ---
Exam(s) XR CHEST 2V PA LATERAL EXAM: XR CHEST 2V PA LATERAL CLINICAL HISTORY: CHRONIC MYELOCYTIC LEUKEMIA C92.10 TECHNIQUE: 2D digital imaging was performed. COMPARISON: CR XR CHEST 2V PA LATERAL from 03/21/[address] CHEST/ABD/PEL W from 04/16/2022 FINDINGS: HEART: Enlarged Aorta: Not dilated. PULMONARY VASCULATURE: Normal. LUNGS: Clear. PLEURAL SPACE: No pleural effusion or pneumothorax. BONE:Unremarkable for age. IMPRESSION: No acute abnormality. DATA REPOSITORY: RADIATION DOSE DELIVERED:
== END 2022-07-01 01:45 ==
LOC: DI 01:26
PROVIDERS: PCP Family Medicine; Visit Provider Internal Medicine Hematology & Oncology
DX: C92.10 Chronic myeloid leukemia, BCR/ABL-positive, not having achieved remission (principal); I51.7 Cardiomegaly
CPT/HCPCS: 71046

== ENCOUNTER 2022-07-11 03:12 | Outpatient (CLI) | payer MEDICARE, SELFPAY ==
[2022-07-11 10:04] LABS: Abs Immature Grans 0.06 10^3/uL (0.0-0.06); Absolute Basophil Count 0.04 10^3/uL (0.0-0.2); Absolute Eosinophil Count 0.06 10^3/uL (0.0-0.7); Absolute Lymphocyte Count 1.11 10^3/uL (1.2-3.4); Absolute Monocyte Count 0.21 10^3/uL (0.1-0.8); Absolute Neutrophil Count 2.57 10^3/uL (1.2-6.7); Eosinophils % 1.5; HCT 45.8 % (40.0-50.0); HGB 14.7 g/dL (13.5-17.5); Immature Grans % 1.5; Lymphocytes % 27.4; MCH 31.9 pg (27.0-33.0); MCHC 32.1 % (32.0-36.0); MCV 99 fL (80-95); MPV 12.3 fL (8.0-11.0); Monocytes % 5.2; Neutrophils % 63.4; Platelet Count 125 10^3/uL (130-400); RBC 4.61 10^6/uL (4.36-5.78); RDW 15.1 % (11.8-14.1); RDW-SD 54.9 fL; WBC 4.05 10^3/uL (4.4-10.8)
[2022-07-11 10:24] LABS: ALT 33 U/L (16-63); AST 27 U/L (15-37); Albumin 3.5 g/dL (3.4-5.0); Alkaline Phosphatase 70 U/L (46-116); Anion Gap 8.9 mmol/L (3-11); BUN 22 mg/dL (7-18); Bilirubin, Total 0.4 mg/dL (0.2-1.0); CO2 26.1 mmol/L (21.0-32.0); CREATININE 1.2 mg/dL (0.70-1.30); Calcium 9.8 mg/dL (8.5-10.1); Chloride 105 mmol/L (98-107); Glucose 132 mg/dL (74-106); Potassium 4.1 mmol/L (3.5-5.1); Sodium 140 mmol/L (136-145); Total Protein 8.4 g/dL (6.4-8.2)
[2022-07-15 13:06] LABS: Indication for Study CML
[2022-07-15 13:09] LABS: Specimen Type Blood
[2022-07-15 13:10] LABS: BCR-ABL1 p210 FusionTranscript See Comments
[2022-07-15 13:15] LABS: BCR-ABL1 Interpretation See Comments
[2022-07-15 13:17] LABS: Limitations and Disclaimers See Comments
== END 2022-07-11 03:13 | disposition home or self-care (01) ==
PROVIDERS: PCP Family Medicine; Visit Provider Nurse Practitioner Family
DX: C92.10 Chronic myeloid leukemia, BCR/ABL-positive, not having achieved remission (principal)
CPT/HCPCS: 36415; 80053; 81206; 85025

== ENCOUNTER 2022-10-17 02:55 | Outpatient (CLI) | payer MEDICARE, SELFPAY ==
[2022-10-17 14:03] LABS: Abs Immature Grans 0.03 10^3/uL (0.0-0.06); Absolute Basophil Count 0.03 10^3/uL (0.0-0.2); Absolute Eosinophil Count 0.04 10^3/uL (0.0-0.7); Absolute Lymphocyte Count 0.97 10^3/uL (1.2-3.4); Absolute Neutrophil Count 2.84 10^3/uL (1.2-6.7); Basophils % 0.7; Eosinophils % 0.9; HCT 46.7 % (40.0-50.0); HGB 15.1 g/dL (13.5-17.5); Immature Grans % 0.7; Lymphocytes % 22.5; MCH 30.8 pg (27.0-33.0); MCHC 32.3 % (32.0-36.0); MCV 95 fL (80-95); MPV 11.7 fL (8.0-11.0); Monocytes % 9.3; Neutrophils % 65.9; Platelet Count 106 10^3/uL (130-400); WBC 4.31 10^3/uL (4.4-10.8)
[2022-10-17 14:20] LABS: ALT 46 U/L (16-63); AST 38 U/L (15-37); Albumin 3.9 g/dL (3.4-5.0); Alkaline Phosphatase 80 U/L (46-116); Anion Gap 10.4 mmol/L (3-11); BUN 17 mg/dL (7-18); Bilirubin, Total 0.6 mg/dL (0.2-1.0); CO2 25.6 mmol/L (21.0-32.0); CREATININE 1.2 mg/dL (0.70-1.30); Calcium 9.9 mg/dL (8.5-10.1); Chloride 105 mmol/L (98-107); Glucose 95 mg/dL (74-106); Sodium 141 mmol/L (136-145); Total Protein 8.7 g/dL (6.4-8.2)
[2022-10-21 20:52] LABS: BCR/ABL1, p210 Result see interpretation; Specimen Type EDTA Whole Blood
== END 2022-10-17 02:56 | disposition home or self-care (01) ==
PROVIDERS: PCP Family Medicine; Visit Provider Nurse Practitioner Family
DX: C92.10 Chronic myeloid leukemia, BCR/ABL-positive, not having achieved remission (principal)
CPT/HCPCS: 36415; 80053; 81206; 85025

== ENCOUNTER 2022-11-15 10:49 | Outpatient (CLI) | payer MEDICARE, SELFPAY ==
--- NOTE | 2022-11-15 10:18 | DI.RAD_ITS ---
Exam(s) XR HIP RT COMPLETE AP PELVIS EXAM: XR HIP RT COMPLETE AP PELVIS INDICATION: right hip pain. COMPARISON: CR XR HIP RIGHT W PELVIS from 09/16/2022 TECHNIQUE: 2D digital imaging was performed. Two views. FINDINGS: Mild right hip joint space narrowing. Mild acetabular spurring. [id number] narrowing of the l eft hip joint space and mild periarticular spurring. SI joints show mild spurring inferiorly. IMPRESSION: Mild degenerative changes of both hips. DATA REPOSITORY: RADIATION DOSE DELIVERED:
== END 2022-11-15 10:50 | disposition home or self-care (01) ==
LOC: DIORS 10:49
PROVIDERS: PCP Family Medicine; Referring Provider Family Medicine; Visit Provider Physician Assistant
DX: M70.61 Trochanteric bursitis, right hip
CPT/HCPCS: 99214; 73502

== ENCOUNTER → 2022-11-22 00:22 | Outpatient (CLI) | payer MEDICARE, SELFPAY ==
--- NOTE | 2022-11-22 09:45 | DI.MRI_ITS ---
Exam(s) MR LOWER JOINT RT WO EXAM: MR LOWER JOINT RT WO CLINICAL HISTORY: ? AVN RIGHT HIP,RT HIP PAIN, M25.551 TECHNIQUE: Multiplanar multisequence MRI of the hip was performed. COMPARISON: CT CT CHEST/ABD/PEL W from 04/16/2022 CR XR HIP RT COMPLETE AP PELVIS from 11/15/2022 FINDINGS: MARROW/JOINTS:There is diffuse bone edema in the right femoral neck and intertrochanteric region susp icious for stress fracture although there are no discrete fracture lines evident on T1 imaging. Ther e is also a focal intramedullary bone lesion in the subtrochanteric region of the right hip measuring 2.8 cm cephalocaudal by 1.4 cm wide by 1.2 cm AP. There is no bone edema surrounding this bone lesi on and there is no associated cortical breakthrough. Hip joint reveals mild degenerative changes. No hypertrophy of the ligamentum teres. There is no evidence of avascular necrosis of the femoral head. EFFUSION: There is a moderate size unilateral right hip joint effusion. BURSAE: There is no evidence of trochanteric bursitis. There is no evidence of iliopsoas bursitis. HIP JOINT SPACE: No obvious chondral defects.There is no hypertrophy of the ligamentum teres nor sign al abnormality at the fovea centralis. LABRUM: There is superior labral tearing evident. No evidence of paralabral cyst. TENDONS: No evidence of tendinitis nor tendon tears. ISCHIAL TUBEROSITY/HAMSTRING: There is no abnormal intraosseous signal in the ipsilateral ischial tub erosity nor tear of the common hamstrings tendon attachment site at this level. OTHER: There is no abnormal intramuscular signal within the quadratus femoris to suggest the presence of impingement syndrome at this level. IMPRESSION: 1. There is bone edema in the femoral neck and intertrochanteric region with relative sparing of the femoral head epiphysis. Suspect suspect stress fracture although there is no obvious fracture line e vident on T1 images. No evidence of avascular necrosis 2. There is tearing of the superior labrum. No evidence of paralabral cyst. 3. Moderate size right hip joint effusion. There are no obvious loose intra-articular bodies. 4. There is a lung to truly orientated 2.8 x 1.4 x 1.2 cm intramedullary bone lesion in the subtroch anteric region of the right hip/proximal femoral diaphysis, non expansile and not exhibiting cortical breakthrough. There is no prominent intramedullary bone edema surrounding this lesion. Therefore t his is probably not a very aggressive lesion. The bone edema is predominately above this level in th e femoral neck and intertrochanteric region. DATA REPOSITORY:
== END ==
PROVIDERS: PCP Family Medicine; Visit Provider Student in an Organized Health Care Education/Training Program
DX: S43.431A Superior glenoid labrum lesion of right shoulder, initial encounter (principal); M89.8X1 Other specified disorders of bone, shoulder; M25.411 Effusion, right shoulder; X58.XXXA Exposure to other specified factors, initial encounter; M25.511 Pain in right shoulder
CPT/HCPCS: 73721

== ENCOUNTER 2023-01-02 04:58 | Outpatient (CLI) | payer MEDICARE, SELFPAY ==
[2023-01-02 10:19] LABS: Abs Immature Grans 0.03 10^3/uL (0.0-0.06); Absolute Basophil Count 0.03 10^3/uL (0.0-0.2); Absolute Eosinophil Count 0.06 10^3/uL (0.0-0.7); Absolute Lymphocyte Count 1.18 10^3/uL (1.2-3.4); Absolute Neutrophil Count 2.51 10^3/uL (1.2-6.7); Basophils % 0.7; Eosinophils % 1.4; HCT 47.4 % (40.0-50.0); HGB 15.2 g/dL (13.5-17.5); Immature Grans % 0.7; MCHC 32.1 % (32.0-36.0); MCV 97 fL (80-95); MPV 12.4 fL (8.0-11.0); Monocytes % 9.5; Neutrophils % 59.7; Platelet Count 124 10^3/uL (130-400); RBC 4.91 10^6/uL (4.36-5.78); RDW 17.1 % (11.8-14.1); RDW-SD 60.7 fL; WBC 4.21 10^3/uL (4.4-10.8)
[2023-01-02 11:28] LABS: ALT 40 U/L (16-63); AST 29 U/L (15-37); Albumin 3.9 g/dL (3.4-5.0); Alkaline Phosphatase 79 U/L (46-116); Anion Gap 8.7 mmol/L (3-11); BUN 19 mg/dL (7-18); Bilirubin, Total 0.5 mg/dL (0.2-1.0); CO2 27.3 mmol/L (21.0-32.0); CREATININE 1.1 mg/dL (0.70-1.30); Calcium 9.9 mg/dL (8.5-10.1); Chloride 101 mmol/L (98-107); Estimated GFR 68.29 (mL/min/1.73m2); Glucose 101 mg/dL (74-106); Potassium 4.6 mmol/L (3.5-5.1); Sodium 137 mmol/L (136-145); Total Protein 8.9 g/dL (6.4-8.2)
[2023-01-06 09:22] LABS: Indication for Study CML
[2023-01-06 09:23] LABS: Specimen Type Blood
[2023-01-06 09:24] LABS: BCR-ABL1 p210 FusionTranscript See Comments
[2023-01-06 09:29] LABS: BCR-ABL1 Interpretation See Comments
[2023-01-06 09:31] LABS: Limitations and Disclaimers See Comments
== END 2023-01-02 04:59 | disposition home or self-care (01) ==
LOC: LBO 04:58
PROVIDERS: Nurse Practitioner Family; PCP Family Medicine; Visit Provider Internal Medicine Hematology & Oncology
DX: C92.10 Chronic myeloid leukemia, BCR/ABL-positive, not having achieved remission (principal)
CPT/HCPCS: 36415; 80053; 81206; 85025

== ENCOUNTER 2023-01-06 13:28 | Outpatient (CLI) | payer MEDICARE, SELFPAY ==
--- NOTE | 2023-01-06 12:45 | DI.RAD_ITS ---
Exam(s) XR PELVIS AP EXAM: XR PELVIS AP CLINICAL HISTORY: right hip pain. TECHNIQUE: 2D digital imaging was performed. COMPARISON: CR XR HIP RT COMPLETE AP PELVIS from 11/15/2022 FINDINGS: Single view. No evidence of pelvic nor hip fracture. Mild joint space narrowing the hips noted. No osseous lesio ns. Bone density normal IMPRESSION: No fracture evident. DATA REPOSITORY: RADIATION DOSE DELIVERED:
== END 2023-01-06 13:29 | disposition home or self-care (01) ==
LOC: DIORS 13:29
PROVIDERS: PCP Family Medicine; Referring Provider Family Medicine; Visit Provider Student in an Organized Health Care Education/Training Program
DX: M16.11 Unilateral primary osteoarthritis, right hip; C92.10 Chronic myeloid leukemia, BCR/ABL-positive, not having achieved remission; I95.9 Hypotension, unspecified; I10 Essential (primary) hypertension; N17.9 Acute kidney failure, unspecified
CPT/HCPCS: 99213; 72170

== ENCOUNTER 2023-01-27 03:48 | Outpatient (CLI) | payer MEDICARE, SELFPAY ==
[2023-01-27 13:14] LABS: HCT 48.1 % (40.0-50.0); HGB 15.7 g/dL (13.5-17.5); MCH 31.1 pg (27.0-33.0); MCHC 32.6 % (32.0-36.0); MCV 95 fL (80-95); MPV 12.4 fL (8.0-11.0); Platelet Count 116 10^3/uL (130-400); RBC 5.05 10^6/uL (4.36-5.78); RDW 16.5 % (11.8-14.1); RDW-SD 58.2 fL; WBC 4.63 10^3/uL (4.4-10.8)
[2023-01-27 14:01] LABS: Anion Gap 10.8 mmol/L (3-11); BUN 21 mg/dL (7-18); CO2 25.2 mmol/L (21.0-32.0); Calcium 9.7 mg/dL (8.5-10.1); Chloride 106 mmol/L (98-107); Estimated GFR 76.56 (mL/min/1.73m2); Glucose 99 mg/dL (74-106); Potassium 4.6 mmol/L (3.5-5.1); Sodium 142 mmol/L (136-145)
== END 2023-01-27 03:49 | disposition home or self-care (01) ==
PROVIDERS: PCP Family Medicine; Visit Provider Student in an Organized Health Care Education/Training Program
DX: M16.11 Unilateral primary osteoarthritis, right hip (principal); Z01.818 Encounter for other preprocedural examination
CPT/HCPCS: 36415; 80048; 85027

== ENCOUNTER 2023-02-05 07:36 | Inpatient (IN) | payer MEDICARE, SELFPAY ==
[2023-02-05] VITALS (13 sets, daily range): BP systolic 101–175; BP diastolic 51–97; PULSE 60–79; RESP 15–20; TEMP 35.8–37.1; O2SAT 92–98; BMI 44.8
[2023-02-05] MEDS: Celecoxib 200 MG CAP 400 MG PO (08:34)
[2023-02-05] MEDS: Acetaminophen 500 MG TAB 1000 MG PO ×2 (08:34→21:13)
--- NOTE | 2023-02-05 08:44 | W.ANESPRE ---
General Info Date of Service Date Performed: 02/05/23 Height: 5 ft 11 in Weight: 145.7 kg Body Mass Index (BMI): 44.8 Surgical Procedure: Operation Date: 02/05/23 10:35 Proposed Procedure Side Surgeon p Hip Total Hip Anterior, ACTIS w/Bone Biopsy Right Alonso Shaw MD Meds Allergies and Home Medications Allergies Allergy/AdvReac Type Severity Reaction Status Date / Time No Known Allergies Allergy Unverified 02/05/23 08:30 Home Medication Medication Instructions Recorded albuterol sulfate 90 mcg/actuation 2 puff inhalation Q4H PRN PRN 12/30/19 aerosol inhaler omeprazole 40 mg capsule,delayed 40 mg PO DAILY PRN 12/30/19 release tamsulosin 0.4 mg capsule 0.8 mg PO QHS 12/30/19 aluminum-mag hydroxide-simethicone 5 ml PO QID PRN 11/15/22 200 mg-200 mg-20 mg/5 mL oral susp (Maalox Advanced) asciminib 20 mg tablet (Scemblix) 40 mg PO DAILY 11/15/22 cholecalciferol (vitamin D3) 25 25 mcg PO DAILY 11/15/22 mcg (1,000 unit) tablet (Vitamin D3) cyanocobalamin (vitamin B-12) 1,000 mcg PO DAILY 11/15/22 1,000 mcg capsule diclofenac sodium 1 % topical gel 2 g topical QID 11/15/22 folic acid 1 mg tablet 1 mg PO DAILY 11/15/22 metoprolol tartrate 25 mg tablet 12.5 mg PO HS 11/15/22 mometasone-formoterol HFA 50 mcg-5 2 puff inhalation Q12H 11/15/22 mcg/actuation aerosol inhaler (Dulera) therapeutic multivitamin 1 tab PO DAILY 11/15/22 acetaminophen 500 mg tablet 1,000 mg (2 x 500 mg) PO TID #90 02/05/23 tabs asciminib 40 mg tablet (Scemblix) mg PO 02/05/23 aspirin 81 mg tablet,delayed 81 mg PO BID #60 tabs 02/05/23 release celecoxib 200 mg capsule 200 mg PO BID #60 caps 02/05/23 dexamethasone 4 mg tablet 4 mg PO DAILY #2 tabs 02/05/23 metoprolol succinate 25 mg mg PO 02/05/23 tablet,extended release 24 hr oxycodone 5 mg tablet 5 mg PO Q4H PRN pain #20 tabs 02/05/23 Current Visit Medications: Current Medications Generic Name Dose Route Start Last Admin Trade Name Zachariah PRN Reason Stop Dose Admin Acetaminophen 1,000 mg 02/05/23 06:00 02/05/23 08:34 Acetaminophen 500 Mg Tab PO 02/05/23 16:00 1,000 mg PREOP APOORVA Administration Celecoxib 400 mg 02/05/23 06:00 02/05/23 08:34 Celecoxib 200 Mg Cap PO 02/05/23 16:00 400 mg PREOP APOORVA Administration Tranexamic Acid 1,000 mg/ 60 mls @ 360 mls/hr 02/05/23 06:00 Sodium Chloride IV 02/05/23 16:00 PREOP APOORVA Ringer's Solution 1,000 mls @ 80 mls/hr 02/05/23 06:00 IV 03/06/23 23:59 INFUSION APOORVA Cefazolin Sodium 3,000 mg/ 100 mls @ 200 mls/hr 02/05/23 06:00 Sodium Chloride IVPB 02/05/23 23:59 PREOP APOORVA IV Miscellaneous Supplies 1 each 02/05/23 06:00 Iv Access IV 03/06/23 23:59 DIRECTED APOORVA Sodium Chloride 0 ml 02/05/23 06:00 Normal Saline Flush 10 Ml Syr IV 03/06/23 23:59 PRN PRN Sodium Chloride 0 ml 02/05/23 06:00 Normal Saline 10 Ml Vial IJ 03/06/23 23:59 DIRECTED PRN Sterile Water 0 ml 02/05/23 06:00 Water,Injection,Sterile 10 Ml Vial IJ 03/06/23 23:59 DIRECTED PRN PFSH Active Problems Active Problems: Problem Status Onset Code Acute arthritis M19.90 Degenerative joint disease of right hip M16.11 Trochanteric bursitis, right hip M70.61 Acute right hip pain M25.551 OSVALDO (acute kidney injury) N17.9 CML (chronic myeloid leukemia) C92.10 HTN (hypertension) I10 GERD (gastroesophageal reflux disease) K21.9 Acute hypotension I95.9 Hypoxia R09.02 Medical History Medical History OSVALDO (acute kidney injury) CML (chronic myeloid leukemia) GERD (gastroesophageal reflux disease) HTN (hypertension) Tobacco Smoking/Tobacco Use Status: Former Tobacco Use Alcohol Alcohol Intake: former Substance Use Substance use: Never Substance use type: does not use Vital Signs and Lab Results Vital Signs Most Recent Vital Signs in EMR: Most Recent Vital Signs Temp Pulse Resp BP Pulse Ox 37.1 C 66 18 145/96 H 94 02/05/23 08:13 02/05/23 08:13 02/05/23 08:13 02/05/23 08:13 02/05/23 08:13 Lab Results Blood Type / Crossmatch: No Data to Display Complete Blood Count: White Blood Count 4.63 10^3/uL (4.4-10.8) 01/27/23 13:00 Red Blood Count 5.05 10^6/uL (4.36-5.78) 01/27/23 13:00 Hemoglobin 15.7 g/dL (13.5-17.5) 01/27/23 13:00 Hematocrit 48.1 % (40.0-50.0) 01/27/23 13:00 Platelet Count 116 10^3/uL (130-400) L 01/27/23 13:00 Complete Metabolic Panel: Sodium 142 mmol/L (136-145) 01/27/23 13:00 Potassium 4.6 mmol/L (3.5-5.1) 01/27/23 13:00 Chloride 106 mmol/L (98-107) 01/27/23 13:00 Carbon Dioxide 25.2 mmol/L (21.0-32.0) 01/27/23 13:00 BUN 21 mg/dL (7-18) H 01/27/23 13:00 Creatinine 1.0 mg/dL (0.70-1.30) 01/27/23 13:00 Est GFR (CKD-EPI 2020) 76.56 (mL/min/1.73m2) 01/27/23 13:00 Calcium 9.7 mg/dL (8.5-10.1) 01/27/23 13:00 Glucose 99 mg/dL (74-106) 01/27/23 13:00 Liver Function Panel: No Data to Display Coagulation Panel: No Data to Display Cardiac Panel: No Data to Display Arterial Blood Gas: No Data to Display Venous Blood Gas: No Data to Display Pancreas Panel: No Data to Display Thyroid Panel: No Data to Display Infectious Disease: No Data to Display Blood Cultures: No Data to Display Toxicology Panel: No Data to Display Anesthesia Assessment and Plan Anesthesia History Personal History: No History of Anesthesia Complications Family History: No Family History of Anesthesia Complications Exercise Tolerance Exercise Tolerance: Metabolic Equivalents>4 Pertinent Negatives Pertinent Negatives: No Symptoms of GERD, No Major Cardiovascular Symptoms or Complaints, No Major Pulmonary Symptoms or Complaints and No History of CVA/TIA Cardiac & Pulmonary Exam Cardiac Exam: Normal S1/S2 Heart Sounds Pulmonary Exam: Clear Bilateral Breath Sounds Implantable Cardiac Device Does patient have a Pacemaker or an ICD?: No Airway Exam Known Difficult Airway: No Mallampati Class: 2 Mouth Opening: Normal (> 3cm) Thyromental Distance: Greater than 3 cm Facial Hair: Full Oliver Neck Range of Motion: Full ROM Neck Circumference: Normal Teeth Condition: Normal Dentition, Generalized Poor Dentition and Loose or Chipped ASA Classification ASA Score: ASA 3 Emergency Case?: No NPO Status NPO Status: NPO Clears >2 hours, Solids >8 hours Anesthesia Plan Resuscitation Status: Full Code Anesthesia Technique: Spinal Anesthesia Airway Planned: Natural Airway Monitors Used: Standard Monitors Preoperative Comments:: 77 yo patient here for EVANGELIST. 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 No prior anesthetics at this facility and none noted in his [facility] records. While currently in remission there is some literature reflecting increased risk of adverse event in the presence of CML and neuraxial anesthesia: discussed this at length with the patient. Cande needle seems to cause the least coring and is the most appropriate needle per literature. Discussed this with patient that adverse event from CML and neuraxial anesthesia is discussed in the literature but due to his good control on his current regimen I don't see the risk being very high. Patient and spouse denied questions and did want to proceed with the spinal today.
[2023-02-05] MEDS: Lactated Ringers 1,000 ML 80 ML IV (08:51)
--- NOTE | 2023-02-05 09:30 | PDOC.DSDIS_ITS ---
Date of service: 02/05/23 Time of Service: 09:30 Discharge Plan Disposition Patient Disposition: Home Condition: Good Discharge Details Reason For Visit: R THR Admit Date/Time: 02/05/23 07:36 Admit Provider: Alonso Shaw Attending Provider: Alonso Shaw Primary Care Provider: Meagan Neely V Home Meds and New Rx's Prescriptions: New celecoxib 200 mg capsule 200 mg PO BID Qty: 60 0RF aspirin 81 mg tablet,delayed release (DR/EC) 81 mg PO BID Qty: 60 0RF acetaminophen 500 mg tablet 1,000 mg PO TID Qty: 90 3RF dexamethasone 4 mg tablet 4 mg PO DAILY Qty: 2 0RF oxycodone 5 mg tablet 5 mg PO Q4H MDD 6 tabs PRN (Reason: pain) Qty: 20 0RF Continued diclofenac sodium 1 % gel 2 g topical QID Rx Instructions: apply to single elbow, wrist or hand; for hand includes palm/fingers/back of hand Dulera 50-5 mcg/actuation HFA aerosol inhaler 2 puff inhalation Q12H Scemblix 20 mg tablet 40 mg PO DAILY metoprolol tartrate 25 mg tablet 12.5 mg PO HS Patient Comments: 02/05/23 pt reports he does not take BP medication anymore alum-mag hydroxide-simeth [Maalox Advanced] 200-200-20 mg/5 mL suspension 5 ml PO QID PRN folic acid 1 mg tablet 1 mg PO DAILY cyanocobalamin (vitamin B-12) 1,000 mcg capsule 1,000 mcg PO DAILY therapeutic multivitamin Tablet 1 tab PO DAILY cholecalciferol (vitamin D3) [Vitamin D3] 25 mcg (1,000 unit) tablet 25 mcg PO DAILY omeprazole 40 mg Capsule,Delayed Release(Dr/Ec) 40 mg PO DAILY PRN Patient Comments: 02/05/23 pt reports he does not take this anymore, as interferes w/Chemo medds. Takes Mylanta instead tamsulosin 0.4 mg capsule 0.8 mg PO QHS Patient Comments: TAKE 2 CAPSULES BY MOUTH DAILY AT BEDTIME albuterol sulfate 90 mcg/actuation HFA aerosol inhaler 2 puff INHALATION Q4H PRN PRN Patient Comments: INHALE 2 PUFFS BY MOUTH EVERY 4 TO 6 HOURS metoprolol succinate 25 mg tablet extended release 24 hr PO Patient Comments: TAKE 1/2 TABLET BY MOUTH EVERY NIGHT Scemblix 40 mg tablet PO Patient Comments: Take 2 tablet by mouth once a day rx by hematology Discontinued acetaminophen [Tylenol Extra Strength] 500 mg tablet 1,000 mg PO TID PRN Discharge Instructions Additional Instructions: Total Hip Discharge Instructions Activity: The most important activity is to walk. You should try to take short walks a few times a day. You have no restrictions on movement or positioning, but do not try to force what you do. You will find some stiffness and weakness with hip flexion (lifting your knee). Do not try to strengthen this too early, continue to practice walking and stairs and this will come. - Outpatient physical therapy can be helpful to help return you to a normal gait and improve your flexibility and strength. This can start around 2 weeks. For some patients, it?s not necessary. Usually this is determined at the time of discharge or at the first post-operative visit. - You should wear the ALTHEA hose on both legs for 2 weeks. Dressing: Keep the surgical dressing in place for at least one week. After the first week it may be removed and replace with light gauze and tape or nothing. It may get wet after 3 days but avoid soaking the dressing. If it gets wet, just lightly pat dry. It is important to always keep some gauze between skin folds, especially when you are sitting. Spend some time with the wound exposed when you are lying flat as the incision does wrinkle onto itself. Medications: - You should take Tylenol and an anti-inflammatory Celebrex as your primary pain control medications. If the Celebrex is too expensive or not covered, please call the office for another alternative (Advil/Ibuprofen or Naproxen/Aleve). - You have been prescribed a stronger pain medication Oxycodone for breakthrough pain, take as needed as prescribed. - You have will continue your omeprazole to help reduce stomach acid and reflux. - You have also been prescribed Decadron to help with post-operative nausea and pain. You will take this for two days starting tomorrow. - You will be taking [Aspirin 81mg twice a day] for DVT prevention unless instructed otherwise. - If you have constipation you should take Colace or Miralax (both [id number]). It takes most people 3-4 days to have a bowel movement. Follow-up: 2 weeks If you have any acute concerns or questions, please do not hesitate to contact the office at [phone]. You may contact Dr. Shaw with any questions after h ours through the hospital at [phone] or on his cell phone at [phone]. Stand Alone Forms: Anesthesia Discharge InstGrecia, [place] ([facility]) Referrals: Alonso Shaw MD [ [facility] STAFF PHYSICIAN] - 02/20/23 11:45 am Activity:: Activity as Tolerated Equipment/Supplies:: Walker Diet:: As Tolerated DS: Diagnosis Discharge Diagnosis (1) Degenerative joint disease of right hip: Status: Acute
--- NOTE | 2023-02-05 09:30 | DI.RAD_ITS ---
Exam(s) XR HIP RT IN OR EXAM: XR HIP RT IN OR CLINICAL HISTORY: HIP FRACTURE. TECHNIQUE: 2D and realtime digital imaging was performed. COMPARISON: No exams were available for comparison FINDINGS: Hard copy images show placement a right hip prosthesis. The alignment appears satisfactory. Please see procedure note for details. Fluoro time: 37.8seconds RADIATION DOSE DELIVERED: Kar=14.2 mGy
[2023-02-05] MEDS: ceFAZolin 3,000 MG in Normal Saline 100 ML 200 MG IVPB (10:11)
--- NOTE | 2023-02-05 11:00 | FEMHEA_PTH ---
PATIENT: Inder Neff LOC: U#:[id number] AGE/SX: 77/M ROOM: 210 RE02/05/[address]: Alonso Shaw MD : 1945 BED: A DIS: 02/06/2023 SPEC #: [id number] RECD: 02/05/23 12:52 STATUS: SOUNandini REQ #: [id number] REHAN: 02/05/23 11:[address]: Alonso Shaw DEPT: Surgical Specimen RECD BY: Clemencia Galindo ENTERED: 02/05/23 12:53 SP TYPE: Femo Head OTHR DR: Meagan Neely Tissues: 1 - FEMORAL HEAD 2 - BONE BX/CURRETTE NOT PATH FRACTURE Procedures: GROSS AND MICRO LEVEL 3 DECALCIFICATION Comments: [id number]
[2023-02-05] MEDS: HYDROmorphone 2 MG/ML SYR IVP ×3 (12:16→12:44)
[2023-02-05] MEDS: Normal Saline 10 ML VIAL IJ (12:16)
--- NOTE | 2023-02-05 12:29 | ROE_ITS ---
Date of service: 02/05/23 Time of Service: 10:15 Operative Note Operative Note DATE OF PROCEDURE: 02/05/23 PRE-OP DIAGNOSIS: Right Hip Osteoarthritis POST-OP DIAGNOSIS: same PROCEDURE: Right Anterior Total Hip Arthroplasty with Intraoperative Navigation SURGEON: Alonso Shaw LABORATORY VETERINARIAN: Jaison Fitzpatrick ANESTHESIA TYPE: Spinal Refer to Anesthesia Record ESTIMATED BLOOD LOSS: 250 PATHOLOGY: none sent TOURNIQUET TIME: 0 COMPLICATIONS: None Patient was transported to: PACU Patient's condition: stable Implants: 1. Depuy [place] Acetabular Component, 58mm 2. Depuy Acetabular Liner, 87u66cm 3. Depuy Actis Standard Collared Femoral Stem, Size 7 4. Depuy Altrx Ceramic Femoral Head, Size 36+5mm Indications: I have seen Inder in clinic for symptoms of hip arthritis, confirmed with radiographic findings. Inder has exhausted nonoperative methods and was having significant limitations in daily function and desired better function and less pain. I discussed the technical details of a hip replacement. I explained the risks of the procedure to include, but not limited to, bleeding, infection, pain, stiffness, fracture, damage to nerves and vessels, damage to muscles and tendons, loosening, instability, leg length inequality, need for repeat procedure, blood clot and cardiopulmonary demise. Despite these risks, he elected to proceed. Findings: There was significant signs of arthritis throughout the hip. There is also notable synovitis within the hip. The bone itself had a fairly normal appearance without signs of pathology. Femoral head as well as medullary bone was sent to pathology for evaluation given the acute nature of his presentation and history of CML. Procedure Description: Inder was greeted in the preoperative holding area where the correct side was identified and marked. The consent was reviewed with the patient and signed. The history and physical was updated. All questions were answered. Inder was taken back to the operating room. A spinal anesthestic was then administered. The feet were wrapped with cast padding and Coban and then placed into the boot liners and then into the boots. Care was taken to protect the skin and make sure the heels were fully down and the boots were stable. The patient was then positioned onto the HANA table. Both legs were held in a neutral position. SCDs were applied. The patient was then slid down onto a peroneal post. Prophylactic antibiotics in the form of Cefazolin were administered. 1g of Tranxemic Acid was given intravenously within 30 minutes of incision. The right leg was then prepped with Chloraprep and draped in a standard fashion. A second prep with Chloraprep was performed prior to placement of a shower-curtain type drape with Iodine impregnated skin protection. A timeout to confirm correct identity, side and site, procedure, allergies, anesthesia, and medical concerns was performed. An obliquely oriented incision was made starting lateral to the ASIS and running distal over the Tensor Fascia [place] (TFL) muscle belly toward the fibular head, approximately 10cm. The skin and soft tissue was dissected sharply, through Tosha?s fascia, and to the fascia of the TFL. With the fascia and superior border of the IT band identified, the fascia was incised with a new knife just above any perforators from the IT band. The TFL muscle belly was bluntly dissected away from the fascia and moved laterally. The fat between TFL and rectus was identified to ensure the dissection was not within the TFL. Blunt dissection created space between abductors and the capsule and retractor was placed over the lateral femoral neck. The fibers of the rectus femoris tendon were identified and these were freed from the anterior capsule. A second cobra retractor was placed around the medial femoral neck. The TFL was further retracted laterally to show the deep fascia. Careful dissection through this layer identified three main crossing vessels of the lateral femoral circumflex. These were cauterized in multiple locations and then cut without any noticeable bleeding. The TFL was further released bluntly from the deep fascia to expose anterior hip capsule and fat The [place] orthopaedic retractor was then placed beneath the TFL and against sartorius and medial soft tissues to protect and retract the soft tissues. A T-capsulotomy was then performed starting at the superior lateral acetabulum and moving distally to the intertrochanteric ridge. These capsular flaps were tagged with a No. 1 Ethibond and elevated from within. The capsular flaps were released to the shoulder of the lateral neck and to the lesser trochanter to give excellent visualization of the proximal femur. A neck osteotomy was performed using an oscillating saw based on preoperative templates. This cut started in the shoulder and of the lateral neck and exited medially. The saw was at all times directed medially to avoid injury to the greater trochanter. Gross traction was applied to the leg and the osteotomy opened. The femoral head was removed with a corkscrew, making sure to protect the TFL on its exit. Traction was released after head removal. There was nothing about the femoral head which appeared acutely ominous. There was notable inflammatory changes around the head itself but the bone appeared to be of expected quality. The head was measured on the back table to determine the starting reamer size. Portions of the rectus obscuring visualization were minimally elevated off the superior acetabulum. An anterior retractor was placed over the anterior wall between capsule and labrum and attached to the Gripper retraction system. The femur was rotated to 90 degrees and medial capsule was fully released until the lesser trochanter was palpable and visible; the femur was returned to 30 degrees. A posterior retractor was placed similarly between capsule and labrum. This provided excellent visualization. The contents of the cotyloid fossa were removed with electrocautery and the labrum was removed with a knife. There is significant synovitis seen within the knee as well. There was a notable floor osteophyte. There was significant chondromalacia of the superior acetabulum. Acetabular reaming began with a 52mm reamer. This first reaming was directed anterior to posterior and medial to get down to the true floor. This was inspected and reamed until the true floor was reached. The anterior retractor was then released and entry and exit was provided by traction on the capsular flaps. I then reamed sequentially up to a 58mm reamer where good fit was obtained. The larger reamers were oriented based on anatomical reference of the anterior and lateral philip to ensure proper abduction and anteversion. Positioning and size was confirmed with the fluoroscopy. A 58mm Depuy [place] acetabular component was selected. The acetabulum was reamed around the periphery with the selected acetabular size to prevent a rim fit. The deep tissues were irrigated. The acetabular component was then impacted in a position of about 40-45 degrees of abduction and 15-20 degrees of anteversion, using the patient?s anatomy as the ultimate landmark. Fluoroscopy was used to confirm this. There was excellent test operator of the acetabular component and the inserting handle was removed. The acetabular liner, Depuy [id number] polyethylene liner, was inserted and lined up with the tines of the acetabular component. There was no soft tissue interposition. The liner was then impacted into position and confirmed to be well-seated. A portion of the angela-articular cocktail was then injected around the acetabulum into the capsule and periosteum. This cocktail consisted of 123mg of Ropivacaine, 0.25mg of Epinephrine, 0.04mg of Clonidine, and 15mg of Ketorolac, diluted to 50cc. The leg was rotated to 120 degrees. Any remaining medial capsule was released until the lesser trochanter was easily palpable. A retractor was placed medially. The lateral capsule was further released into the shoulder to allow access to the greater trochanter. A Lemus retractor was placed over the greater trochanter which allowed the trochanter to flip in front of the capsule for excellent exposure. The leg was brought down into maximal extension and 20 degrees of adduction while ensuring there was no impingement on the acetabulum. Any remnant capsule within the trochanter was released. Piriformis and obturator externis were identified and protected. There was excellent access to the proximal femur. The lateral neck remnant was removed with a rongeur. A blunt canal probe was used to identify the canal and trajectory for later broaching. A box osteotome initiated the broach course. Bone from the box osteotome as well as samples from within the proximal metaphyseal femur were sent for a second sample to pathology. A small curved rasp and a curved curette were used to work laterally. Broaching then began with a starter Actis broach. This was inserted manually around the trochanter and into the canal before mallet blows. The broach was seated to a few millimeters below the cut level based on the neck cut and the preoperative template. Sequential broaching was continued with the [employer] pneumatic broaching device until a tight fit was obtained with good rotational control of the femur. A trial standard neck was inserted along with a +5 trial head. The leg was brought out of extension and adduction and then reduced with traction and internal rotation. The leg was stable anteriorly in a position of 30 degrees of extension and 90 degrees of external rotation. Fluoroscopy was used to ensure there was no fracture and the stem was seated well. Leg lengths were checked with an AP pelvis and pelvic reference points. [employer] navigation system was used to confirm appropriate positioning and leg length and offset. Once content with the desired offset and leg lengths, the leg was brought back into extension, external rotation and adduction. The periosteum and surrounding tissue was injected with remaining portion of the angela-articular cocktail. The proximal femur was irrigated as well as the deep tissues. The Depuy Actis standard collared stem, size 7, was then manually inserted into the proximal femur making sure to control rotation. It was then malleted into position with light blows, giving breaks to allow bone expansion and decrease risk of fracture. The selected Depuy Altrx Ceramic Head, size 32+5mm, was then placed onto the clean and dry trunnion and secured with impaction onto the tapered fit. The leg was brought back out of extension and adduction and reduced with traction and internal rotation. Stability was confirmed with no shuck at 90 degrees of external rotation and 30 degrees of extension. No impingement through range of motion arc. Final x-ray images were obtained with fluoroscopy to confirm adequate positioning and no intraoperative fracture. The deep tissues were thoroughly irrigated with Surgiphor, betadine solution. This was allowed to sit in the wound for 3 minutes before being thoroughly irrigated out with normal saline. The capsule was then reapproximated with the previously placed Ethibond sutures. The TFL fascia was finally closed with a No. 2 Stratafix, barbed suture. Deep tissues were then reapproximated with 0 Vicryl and a running 2-0 Vicryl. The skin was closed with a running 4-0 Monocryl in a subcuticular fashion. This was reinforced with skin glue. A Mepilex silver dressing was applied. At the end of the case, all counts were correct. Inder was transferred to the hospital bed without difficulty and suffering no apparent complication. Inder has a good prognosis. Physical therapy will start today and without restrictions, weight-bearing as tolerated. Aspirin 81mg BID will be used for DVT prophylaxis.
--- NOTE | 2023-02-05 13:19 | W.ANESPOSTOP ---
Postoperative Evaluation Date, Time and Location Date Performed: 02/05/23 Time Performed: 12:55 Patient Location: PACU Vital Signs Most Recent Imported Vital Signs: Most Recent Vital Signs Temp Pulse Resp BP Pulse Ox 36.6 C 60 15 107/61 95 02/05/23 12:44 02/05/23 13:00 02/05/23 13:00 02/05/23 13:00 02/05/23 13:00 Pain Score Most Recent Pain Score: Most Recent Pain Score Pain Level 6 02/05/23 13:00 Assessment Mental Status: Awake (Alert & Oriented to Patient Baseline) Airway and Respiratory Function: Patent airway with normal (patient baseline) respiratory exam Cardiovascular Function: Hemodynamically Stable Hydration Status: Adequately Hydrated Nausea & Vomiting: No Nausea or Vomiting Pain: Pain is tolerable per patient (To continue treatment on the floor. ) Peripheral Nerve Block: Patient did not receive a nerve block
--- NOTE | 2023-02-05 13:57 | RESPIRATORY ---
RT seen pt. and checked his home unit. He has home cpap ResMed auto cPAP max. 15 min. 8 with no O2 at bedside. Pt. advised he wears it every night before going to sleep. Pt. own cpap is in good condition to go, pt. states wears it independently needs water filled out before he wears it. pt. is unsure of it's DME.
[2023-02-05] MEDS: oxyCODONE 5 MG TAB PO ×3 (14:00→21:13)
--- NOTE | 2023-02-05 16:27 | PT.INIE ---
PT Notes Visit Reasons: OA R hip Physical Therapy Inpatient Initial Evaluation Date: 02/05/2023 Referring Doctor: NENO Jorgensen PT Orders: PT CONSULT: Eval/treat Precautions: Standard. WBAT on right LE with AD. Patient Profile/Admitting Diagnosis: Inder is a 77-year-old male with degenerative joint disease of the right hip and is status post right anterior total hip arthroplasty on postoperative day 0. PMHX: All Active Problems (Updated 01/06/23 @ 14:33 by Lisa Ford) Degenerative joint disease of right hip (Acute) Trochanteric bursitis, right hip (Acute) Acute right hip pain (Acute) OSVALDO (acute kidney injury) (Chronic) CML (chronic myeloid leukemia) (Acute) HTN (hypertension) (Chronic) GERD (gastroesophageal reflux disease) (Chronic) Acute hypotension (Acute) Hypoxia (Acute) Medical History OSVALDO (acute kidney injury) CML (chronic myeloid leukemia) GERD (gastroesophageal reflux disease) HTN (hypertension) Social History/Home Situation: Lives with in a private home with no steps to enter. Independent with all aspects of ADLs although has had increasing difficulty with mobility ADL performance due to worsening pain on the right hip. Equipment Owned/DME: FWW with tray, PETE Subjective: Reports minor discomfort in the back of his right knee with weight bearing. Quantifies knee pain on the right as 4?5/10 at rest and with weightbearing. Denies headache, chest pain, and lightheadedness throughout session. Objective: General Observation: Supine in bed. IV through right UE. TDS to be legs. Mepilex Ag over surgical incision. Mental Status: Alert and oriented as to person, place, time, and purpose. Able to pay attention, focus, and respond appropriately. Pain: As above Vital Signs: Closely monitored by nursing staff ROM: Right Lower Extremity: Hip flexion WFL. Hip abduction WFL. Knee flexion WFL. Ankle dorsiflexion WFL. Ankle plantarflexion WFL. Left Lower Extremity: Hip flexion WFL. Hip abduction WFL. Knee flexion WFL. Ankle dorsiflexion WFL. Ankle plantarflexion WFL. Strength: Right Lower Extremity: Hip flexors 4-/5. Hip abductors 4-/5. Knee flexors 4/5. Knee extensors 4-/5. Ankle dorsiflexors 5/5. Ankle plantarflexors 5/5. Left Lower Extremity: Hip flexors 5/5. Hip abductors 5/5. Knee flexors 5/5. Knee extensors 5/5. Ankle dorsiflexors 5/5. Ankle plantarflexors 5/5. Bed Mobility/Transfers: Supine to sit with standby assist with HOB at 30 degrees, hooked right foot under the left foot sliding to the edge of the bed Sit to stand with contact-guard assist requiring minimal verbal cueing to use both hands for support and for safety Stand to sit with contact-guard assist requiring minimal verbal cueing to use both hands for support and for safety Bed to toilet seat with contact-guard assist requiring minimal verbal cueing to use both hands for support and for safety Bedside commode to bedside recliner contact-guard assist requiring minimal verbal cueing to use both hands for support and for safety Gait: Facilitated safe and correct performance of level surface ambulation covering a distance of 50 feet using front wheeled walker with minimal verbal cueing provided for step through heel toe gait pattern with no report of increased pain. Reported fatigue that resolved with rest. Amazed at how less pain he is feeling to what he anticipated. Balance: Static Sitting: Normal Dynamic Sitting: Normal Static Standing: Fair Dynamic Standing: Fair Special Tests: Mobility Limitations Standardized Measure [facility] AM-PAC 6 clicks Basic Mobility Inpatient Short Form: Raw Score: 20 CMS Score: 36% deficit Informed Consent/Education: Patient was instructed in purpose of PT consult and plan of care. Agreeable to proceed with established PT POC to achieve personal goals. Initiated training with correct performance of exercises below to maximize motor control, joint flexibility, soft tissue extensibility of the L hip musculature to facilitate return to independent functional mobility performance. Access Code: [email or web address] URL: [email or web address] Date: 02/05/2023 Prepared by: Nidia Bagley Exercises - Gluteal Sets - 1 x daily - 7 x weekly - 1 sets - 10 reps - 5 hold - Supine Heel Slide - 1 x daily - 7 x weekly - 1 sets - 10 reps - 5 hold - Supine Ankle Pumps - 1 x daily - 7 x weekly - 1 sets - 10 reps - 5 hold - Seated March - 1 x daily - 7 x weekly - 1 sets - 10 reps - 5 hold - Seated Long Arc Quad - 1 x daily - 7 x weekly - 1 sets - 10 reps - 5 hold Assessment: Patient requires the use of a front wheeled walker for all mobility ADL performance maximize independence and reduce fall risk. Patient presents with clinical signs and symptoms consistent with current/admitting diagnoses that have resulted to mobility limitations, gait instability, generalized weakness, and overall ADL decline as demonstrated by the following impairment level findings: 1. Decreased strength to R hip major muscle groups 2. Impaired sitting/standing balance 3. Impaired activity tolerance Impairments are contributing to the following functional limitations: 1. Decline in bed mobility skills 2. Decline in transfer skills 3. Difficulty with ambulation without assistive device 4. Increased completion time for mobility ADL performance 5. Increased risk for falls 6. Difficulty with managing steps alone safely Patient is assessed as a 65233 moderate complexity based on the following: History: 77-year-old female with past medical history as indicated above Examination: Demonstrable impairment in strength, balance, and mobility level with underlying impairments and functional limitations as exhibited above as well as deficit score of 36% utilizing the [facility] Mobility Inpatient Short Form Presentation: Evolving Decision Makin moderate complexity Goals: Goals X1 week 1. Supine-Sit independent 2. Sit-Supine independent 3. Sit-Stand independent 4. Stand-Sit independent with FWW 5. Bed-Chair independent with FWW 6. Chair-Bed independent with FWW 7. Independent gait on level surface with use of FWW for at least 300 feet without report of pain nor dyspnea 8. Independent with home exercise program 9. Good static and dynamic standing balance/tolerance Plan of Care/Treatment Plan: 1-2x/day, 7 days/week x 1 week. Plan of care has been reviewed with the ENTRY LEVEL ACCOUNT MANAGER providing the service under Physical Therapy direction. Initiate Physical Therapy intervention for pain management as needed, strengthening, bed mobility, transfers, gait, stairs, balance training, and use of assistive device. DISCHARGE RECOMMENDATIONS: [] Home with no services [] [] Home with services [specify] [X] Home with outpatient PT. home when medically cleared by orthopedic surgeon. Recommend outpatient PT services in order to optimize functional mobility outcomes and facilitate return to independent community ambulation without an assistive device. [] SNF for continued rehabilitation [] [] [facility] [] [] SNF versus LTC based on ability to participate and progress [] TREATMENT CODE/TIME: 20206 x 20 minutes for 1 unit, 95198 x 16 minutes for 1 unit beginning at 15:46 PM. Thank you for the opportunity to participate in the care of this patient. Nidia Bagley PT, DPT, CLT [facility] [place], [place]
[2023-02-05] MEDS: Metoprolol CR 25 MG TABCR 12.5 MG PO (21:08)
[2023-02-05] MEDS: Tamsulosin 0.4 MG CAPCR 0.8 MG PO (21:09)
[2023-02-06 03:45] VITALS: BP 138/73; PULSE 70; RESP 16; TEMP 35.9; O2SAT 94
[2023-02-06] MEDS: Acetaminophen 500 MG TAB 1000 MG PO (04:19)
[2023-02-06 08:00] VITALS: BP 131/64; PULSE 64; RESP 19; TEMP 36; O2SAT 95
[2023-02-06] MEDS: Cholecalciferol (Vitamin D3) 1,000 UNIT TAB 1000 UNITS PO (08:39)
[2023-02-06] MEDS: Normal Saline Flush 10 ML SYR IV (08:40)
[2023-02-06] MEDS: Cyanocobalamin 500 MCG TAB 1000 MCG PO (08:40)
--- NOTE | 2023-02-06 09:36 | PDOC.CMIN ---
Date of service: 02/06/23 Time of Service: 09:36 Care Management Initial Assmt Initial Assessment REASON FOR HOSPITALIZATION:: right total hip PREVIOUS FUNCTIONAL STATUS/SOCIAL/FAMILY SUPPORTS:: Inder lives in [place] with his Sean. They have 3 children. A son and a daughter live close by and the other son lives about an hour away in [place]. Inder informed CM that they are a close and supportive family. 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 He has a cane, crutches, rollator, and a walker/wheelchair combination. He is independent with ADLs . CURRENT FUNCTIONAL STATUS:: Inder was sitting up in a chair when CM met with him. He was pleasant and engaged well with CM. He stated that he feels well, better than before surgery. Inder anticipates being discharged home today and informed CM that he prefers not to have any home health services. He feels that he and his will manage well on their own. Inder shared some information about assistive devices he has purchased. One is a long handled toe nail clipper. He stated that they work really well. He also purchased a combination walker/wheelchair, which can be folded up for easy transport. ADVANCE DIRECTIVES:: none on file Has patient been provided with info about the portal/API?: Yes Did the patient sign up for the portal?: No CODE STATUS:: Full Code INSURANCE COVERAGE / FINANCIAL ISSUES:: Medicare CURRENT HOME/COMMUNITY SERVICES/EQUIPMENT:: rollator walker, cane, wheelchair/walker combo PRIMARY CARE PHYSICIAN:: Meagan Neely POTENTIAL DISCHARGE NEEDS:: follow up with PCP and Orthopedic surgeon PATIENT/FAMILY EDUCATION NEEDS:: Review of discharge instructions, activity, limitations, follow up plan, discuss Ask Me Three TRANSPORTATION:: via private vehicle with family PLAN:: Anticipate that Inder will be discharged home with no new services. He will follow up with his orthopedic surgeon and PCP and transport with family. CM will follow and support discharge needs. PFSH All Active Problems Acute arthritis (Acute) Degenerative joint disease of right hip (Acute) Trochanteric bursitis, right hip (Acute) Acute right hip pain (Acute) OSVALDO (acute kidney injury) (Chronic) CML (chronic myeloid leukemia) (Acute) HTN (hypertension) (Chronic) GERD (gastroesophageal reflux disease) (Chronic) Acute hypotension (Acute) Hypoxia (Acute) Social History Smoking/Tobacco Use Status: Former Tobacco Use Quit Date: 04/07/83 Smoking risk assessment performed?: Yes Alcohol Intake: former Drug use: Never Substance use type: does not use Housing: house Do you feel safe at home: Yes Do you feel safe in your relationship?: Yes
[2023-02-06] MEDS: oxyCODONE 5 MG TAB PO ×2 (09:46→12:52)
[2023-02-06] MEDS: Polyethylene Glycol 3350 17 GM PACKET PO (09:47)
--- NOTE | 2023-02-06 10:00 | PTTR_ITS ---
Date of service: 02/06/23 Time of Service: 09:17 PT Notes Visit Reasons: OA R hip Inpatient Physical Therapy Treatment Note [facility] Date: 02/06/23 PRECAUTIONS: Fall, standard, activity as tolerated. WBAT RLE with AD. SUBJECTIVE: patient reports eating very well in the hospital. OBJECTIVE: long sitting in bed, agreeable to therapy. Son present. ? PAIN: in hip, anterior thigh, especially with movement. VITALS: monitored by nursing staff. ? BED MOBILITY/TRANSFERS? Rolling L/R: not assessed Supine-sit: not assessed ? Sit-supine: not assessed ? Sit-stand: CGA ? Stand-sit: CGA ? Bed-Chair: CGA ? Chair-bed: CGA Gait Training ([id number]): Direct one-on-one instruction and skilled instruction in: [x] employing an assistive device [] modified weight-bearing status [x] movement sequencing [x] turning and movement with proper form [x] Provided verbal cues for equipment management and technique [x] Provided instruction in gait pattern [] Patient education regarding pacing and breathing techniques to maximize activity tolerance? GAIT? Assistive Device: FWW, bilateral axillary crutches ? Weight bearing: WBAT RLE Assist: CGA? Distance:? 60 feet with FWW, 20 feet with axillary crutches? Deviation: Patient initially walks with FWW demonstrating antalgic, stiff- legged, and step-to gait pattern on RLE, hesitating to bend knee at toe off into swing phase as well as hesitating to extend hip even to neutral in stance phase. Corrected with verbal cues. Axillary crutches result in patient increasing step length and demonstrating a more reciprocal step through pattern. ? Therapeutic Exercises ([id number]): Direct one-on-one instruction in therapeutic exercises to develop strength, endurance, range of motion and flexibility. ? Exercises Issued HEP handout and reviewed HEP as established by DPT Nidia Bagley, including: * 1x10 x5 second hold glute sets * 1x10 ankle pumps * 1x10 seated marching * 1x10 LAQ's * 1x10 heel slides. Provided skilled instruction in proper exercise performance Provided skilled manual cues to facilitate proper muscle recruitment and/or form. ASSESSMENT:? Patient tolerates therapy well, RN aware of increase in pain, no SOB, no LOB. PLAN: Continue global strengthening per plan of care until patient is medically cleared for discharge TREATMENT CODE/TIME: 38 minutes beginning at 9:17
[2023-02-06 10:55] VITALS: BP 126/76; PULSE 76; RESP 18; TEMP 36.6; O2SAT 94
--- NOTE | 2023-02-06 12:26 | DSE_ITS ---
Date of service: 02/06/23 Time of Service: 12:26 DS: Diagnosis Discharge Diagnosis (1) Degenerative joint disease of right hip: Status: Acute Discharge Plan Disposition Patient Disposition: Home Condition: Good Discharge Details Reason For Visit: OA R hip Admit Date/Time: 02/05/23 07:36 Admit Provider: Alonso Shaw Attending Provider: Alonso Shaw Primary Care Provider: Meagan Neely V Hospital Course Hospital Course: Patient was admitted to the medical/surgical floor following the procedure. The surgery was tolerated well without any notable medical, surgical, or anesthetic complications. Mobilization began postoperatively. He was voiding spontaneously. Vitals were stable. Physical therapy worked with the patient and was cleared for discharge home. No acute medical issues. Pain was controlled on oral regimen. Home Meds and New Rx's Prescriptions: New celecoxib 200 mg capsule 200 mg PO BID Qty: 60 0RF aspirin 81 mg tablet,delayed release (DR/EC) 81 mg PO BID Qty: 60 0RF acetaminophen 500 mg tablet 1,000 mg PO TID Qty: 90 3RF dexamethasone 4 mg tablet 4 mg PO DAILY Qty: 2 0RF oxycodone 5 mg tablet 5 mg PO Q4H MDD 6 tabs PRN (Reason: pain) Qty: 20 0RF Continued diclofenac sodium 1 % gel 2 g topical QID Rx Instructions: apply to single elbow, wrist or hand; for hand includes palm/fingers/back of hand Dulera 50-5 mcg/actuation HFA aerosol inhaler 2 puff inhalation Q12H Scemblix 20 mg tablet 40 mg PO DAILY metoprolol tartrate 25 mg tablet 12.5 mg PO HS Patient Comments: 02/05/23 pt reports he does not take BP medication anymore alum-mag hydroxide-simeth [Maalox Advanced] 200-200-20 mg/5 mL suspension 5 ml PO QID PRN folic acid 1 mg tablet 1 mg PO DAILY cyanocobalamin (vitamin B-12) 1,000 mcg capsule 1,000 mcg PO DAILY therapeutic multivitamin Tablet 1 tab PO DAILY cholecalciferol (vitamin D3) [Vitamin D3] 25 mcg (1,000 unit) tablet 25 mcg PO DAILY omeprazole 40 mg Capsule,Delayed Release(Dr/Ec) 40 mg PO DAILY PRN Patient Comments: 02/05/23 pt reports he does not take this anymore, as interferes w/Chemo medds. Takes Mylanta instead tamsulosin 0.4 mg capsule 0.8 mg PO QHS Patient Comments: TAKE 2 CAPSULES BY MOUTH DAILY AT BEDTIME albuterol sulfate 90 mcg/actuation HFA aerosol inhaler 2 puff INHALATION Q4H PRN PRN Patient Comments: INHALE 2 PUFFS BY MOUTH EVERY 4 TO 6 HOURS metoprolol succinate 25 mg tablet extended release 24 hr PO Patient Comments: TAKE 1/2 TABLET BY MOUTH EVERY NIGHT Scemblix 40 mg tablet PO Patient Comments: Take 2 tablet by mouth once a day rx by hematology Discontinued acetaminophen [Tylenol Extra Strength] 500 mg tablet 1,000 mg PO TID PRN Discharge Instructions Additional Instructions: Total Hip Discharge Instructions Activity: The most important activity is to walk. You should try to take short walks a few times a day. You have no restrictions on movement or positioning, but do not try to force what you do. You will find some stiffness and weakness with hip flexion (lifting your knee). Do not try to strengthen this too early, continue to practice walking and stairs and this will come. - Outpatient physical therapy can be helpful to help return you to a normal gait and improve your flexibility and strength. This can start around 2 weeks. For some patients, it?s not necessary. Usually this is determined at the time of discharge or at the first post-operative visit. - You should wear the ALTHEA hose on both legs for 2 weeks. Dressing: Keep the surgical dressing in place for at least one week. After the first week it may be removed and replace with light gauze and tape or nothing. It may get wet after 3 days but avoid soaking the dressing. If it gets wet, just lightly pat dry. It is important to always keep some gauze between skin folds, especially when you are sitting. Spend some time with the wound exposed when you are lying flat as the incision does wrinkle onto itself. Medications: - You should take Tylenol and an anti-inflammatory Celebrex as your primary pain control medications. If the Celebrex is too expensive or not covered, please call the office for another alternative (Advil/Ibuprofen or Naproxen/Aleve). - You have been prescribed a stronger pain medication Oxycodone for breakthrough pain, take as needed as prescribed. - You have will continue your omeprazole to help reduce stomach acid and reflux. - You have also been prescribed Decadron to help with post-operative nausea and pain. You will take this for two days starting tomorrow. - You will be taking Aspirin 81mg twice a day for DVT prevention unless instructed otherwise. - If you have constipation you should take Colace or Miralax (both [id number]). It takes most people 3-4 days to have a bowel movement. Follow-up: 2 weeks If you have any acute concerns or questions, please do not hesitate to contact the office at [phone]. You may contact Dr. Shaw with any questions after hours through the hospital at [phone] or on his cell phone at [phone]. Stand Alone Forms: [facility]est[facility]charge [facility] [place] ([facility]) Referrals: Alonso Shaw MD [ [facility] STAFF PHYSICIAN] - 02/20/23 11:45 am Activity:: Activity as Tolerated Equipment/Supplies:: Walker Diet:: As Tolerated Discharge Orders Discharge Orders: Discharge Order (Routine); Ordered 02/06/23 Ordered By: Alonso Shaw DS: Summary Time Spent with Patient providing and/or coordinating discharge services: Less than 30 minutes Status at Discharge Functional status at discharge: uses cane/walker Overall status at discharge: patient is progressing back to baseline Mental Status: mental status grossly normal Speech and Movement: speech and movement normal Mood: congruent mood Affect: normal affect Exam Psych Mental Status: mental status grossly normal Speech and Movement: speech and movement normal Mood: congruent mood Affect: normal affect DS: Data Vitals/I&O Vitals and I&O: Vital Signs Temperature 36.6 C 02/06/23 10:55 Temperature Source Tympanic 02/06/23 10:55 Pulse 76 02/06/23 10:55 Pulse Rhythm Regular 02/06/23 08:46 Respiratory Rate 18 02/06/23 10:55 Respiratory Effort Normal, Non-Labored 02/06/23 08:46 Respiratory Depth Normal 02/06/23 08:46 Respiratory Pattern Normal 02/06/23 08:46 Blood Pressure 126/76 02/06/23 10:55 Pulse Oximetry 94 02/06/23 10:55 Respiratory End-tidal CO2 39 02/05/23 12:44 Oxygen Delivery Method Room Air 02/06/23 10:55 Oxygen Flow Rate 0 02/06/23 10:55 Pain Level 0 02/06/23 10:55 Intake & Output 02/05/23 02/06/23 02/06/23 23:59 11:59 23:59 Intake Total 700 / 1160 350 / 350 Output Total 550 / 800 400 / 400 Balance 150 / 360 -50 / -50 Intake: IV 700 / 1160 10 / 10 Oral 340 / 340 Output: Urine 550 / 550 400 / 400 Other: Urine Color Yellow Yellow Urine Appearance Clear Clear Urine Odor None Normal Emesis Description None Voiding Methods Toilet Toilet PFSH All Active Problems Acute arthritis (Acute) Degenerative joint disease of right hip (Acute) Trochanteric bursitis, right hip (Acute) Acute right hip pain (Acute) OSVALDO (acute kidney injury) (Chronic) CML (chronic myeloid leukemia) (Acute) HTN (hypertension) (Chronic) GERD (gastroesophageal reflux disease) (Chronic) Acute hypotension (Acute) Hypoxia (Acute) Social History Smoking/Tobacco Use Status: Former Tobacco Use Quit Date: 04/07/83 Smoking risk assessment performed?: Yes Alcohol Intake: former Drug use: Never Substance use type: does not use Housing: house Do you feel safe at home: Yes Do you feel safe in your relationship?: Yes Time Spent with Patient Time Spent with Patient: <45 minutes Time was spent: preparing to see the patient(eg.review tests), indepentently interpreting results, counseling the patient and care coordination
--- NOTE | 2023-02-06 12:47 | PDOC.CMDIS ---
Date of service: 02/06/23 Time of Service: 12:47 Care Management Discharge Plan Reason for Hospitalization: right total hip
== END 2023-02-06 13:25 | disposition home or self-care (01) | DRG 470 ==
LOC: PDS 10:33 → MS 13:24 → PDS 13:26 → MS 13:26
PROVIDERS: Admitting Provider Student in an Organized Health Care Education/Training Program; PCP Family Medicine; Visit Provider Student in an Organized Health Care Education/Training Program
PROC: 0SR904A Replacement of Right Hip Joint with Ceramic on Polyethylene Synthetic Substitute, Uncemented, Open Approach (ICD-10-PCS; CPT 27130; principal; 2023-02-05 10:15)
DX: M16.11 Unilateral primary osteoarthritis, right hip (principal); C92.10 Chronic myeloid leukemia, BCR/ABL-positive, not having achieved remission; K21.9 Gastro-esophageal reflux disease without esophagitis; I10 Essential (primary) hypertension; J45.991 Cough variant asthma; G47.30 Sleep apnea, unspecified; N40.1 Benign prostatic hyperplasia with lower urinary tract symptoms; R35.0 Frequency of micturition; Z87.891 Personal history of nicotine dependence; Z79.899 Other long term (current) drug therapy
CPT/HCPCS: 27130; 20985; 88305; 94640; 97110; 97116; 97162; 97530; 73501; 88304; 88311; G0378; J0690; J1100; J1170; J2405

== ENCOUNTER 2023-02-20 12:08 | Outpatient (CLI) | payer MEDICARE, SELFPAY ==
--- NOTE | 2023-02-20 11:30 | DI.RAD_ITS ---
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 COMPARISON: XA XR HIP RT IN OR from 02/05/2023 TECHNIQUE: 2D digital imaging was performed. Three views. FINDINGS: There has been no change in the alignment of the right hip prosthesis. There are no abnormal surroun ding bony lucencies. There are mild degenerative changes of the left hip. DATA REPOSITORY: RADIATION DOSE DELIVERED:
== END 2023-02-20 12:09 | disposition home or self-care (01) ==
LOC: DIORS 12:08
PROVIDERS: PCP Family Medicine; Referring Provider Family Medicine; Visit Provider Student in an Organized Health Care Education/Training Program
DX: Z96.641 Presence of right artificial hip joint (principal); Z47.1 Aftercare following joint replacement surgery
CPT/HCPCS: 73502

== ENCOUNTER → 2023-03-20 10:39 | Outpatient (BNVA) | payer MEDICARE, SELFPAY | PROVIDERS: PCP Family Medicine; Referring Provider Family Medicine | DX: Z47.1 Aftercare following joint replacement surgery (principal); Z96.641 Presence of right artificial hip joint ==

== ENCOUNTER 2023-04-14 13:47 | Outpatient (CLI) | payer MEDICARE, SELFPAY ==
[2023-04-14 08:45] LABS: Abs Immature Grans 0.04 10^3/uL (0.0-0.06); Absolute Basophil Count 0.04 10^3/uL (0.0-0.2); Absolute Eosinophil Count 0.09 10^3/uL (0.0-0.7); Absolute Lymphocyte Count 1.15 10^3/uL (1.2-3.4); Absolute Monocyte Count 0.36 10^3/uL (0.1-0.8); Absolute Neutrophil Count 2.95 10^3/uL (1.2-6.7); Basophils % 0.9; Eosinophils % 1.9; HCT 45.8 % (40.0-50.0); HGB 15.1 g/dL (13.5-17.5); Immature Grans % 0.9; Lymphocytes % 24.8; MCH 31.2 pg (27.0-33.0); MCV 95 fL (80-95); MPV 12.1 fL (8.0-11.0); Monocytes % 7.8; Neutrophils % 63.7; Platelet Count 117 10^3/uL (130-400); RBC 4.84 10^6/uL (4.36-5.78); RDW 16.1 % (11.8-14.1); RDW-SD 57.2 fL; WBC 4.63 10^3/uL (4.4-10.8)
[2023-04-14 09:25] LABS: ALT 34 U/L (16-63); AST 30 U/L (15-37); Albumin 3.7 g/dL (3.4-5.0); Alkaline Phosphatase 76 U/L (46-116); Anion Gap 9.5 mmol/L (3-11); BUN 23 mg/dL (7-18); Bilirubin, Total 0.6 mg/dL (0.2-1.0); CO2 25.5 mmol/L (21.0-32.0); CREATININE 1.1 mg/dL (0.70-1.30); Calcium 9.7 mg/dL (8.5-10.1); Chloride 105 mmol/L (98-107); Estimated GFR 68.29 (mL/min/1.73m2); Glucose 114 mg/dL (74-106); Potassium 3.9 mmol/L (3.5-5.1); Sodium 140 mmol/L (136-145); Total Protein 8.5 g/dL (6.4-8.2)
[2023-05-05 14:29] LABS: Indication for Study CML; Specimen Type Blood
[2023-05-05 14:30] LABS: BCR-ABL1 p210 FusionTranscript See Comments
[2023-05-05 14:31] LABS: BCR-ABL1 Interpretation See Comments
[2023-05-05 14:32] LABS: Limitations and Disclaimers See Comments
== END 2023-04-14 13:48 | disposition home or self-care (01) ==
LOC: LBO 13:48
PROVIDERS: PCP Family Medicine; Visit Provider Nurse Practitioner Family
DX: C93.10 Chronic myelomonocytic leukemia not having achieved remission (principal)
CPT/HCPCS: 36415; 80053; 81206; 85025

== ENCOUNTER → 2023-05-02 10:05 | Outpatient (BNVA) | payer MEDICARE, SELFPAY | PROVIDERS: PCP Family Medicine; Referring Provider Family Medicine; Visit Provider Student in an Organized Health Care Education/Training Program | DX: Z47.1 Aftercare following joint replacement surgery (principal); Z96.641 Presence of right artificial hip joint ==

== ENCOUNTER 2023-05-09 15:48 | Outpatient (REF) | payer MEDICARE, SELFPAY ==
[2023-05-09 15:36] LABS: Calculated LDL 88 mg/dL (<100); Cholesterol 154 mg/dL (<200); HDL Cholesterol 59 mg/dL (40-60); TSH (W/Ref FT4) 2.02 uIU/mL (0.36-3.74); Triglyceride 37 mg/dL (<150)
[2023-05-09 15:53] LABS: Hemoglobin A1C 5.4 % (<5.7)
== END 2023-05-09 15:49 | disposition home or self-care (01) ==
LOC: NCHCN 15:48
PROVIDERS: PCP Family Medicine; Visit Provider Family Medicine
DX: Z00.00 Encounter for general adult medical examination without abnormal findings (principal)
CPT/HCPCS: 80061; 83036; 84443

== ENCOUNTER → 2023-08-29 02:05 | Outpatient (CLI) | payer MEDICARE, SELFPAY ==
--- NOTE | 2023-08-29 | DI.DEXA_ITS ---
Exam(s) XR DEXA BONE DENSITY W/WO YADIEL EXAM: XR DEXA BONE DENSITY W/WO YADIEL CLINICAL HISTORY: OSTEOPENIA, M85.88 TECHNIQUE: [id number] C densitometer analysis of left hip, lumbar spine and left forearm. Lat eral survey image of the thoracic and lumbar spine. COMPARISON: None FINDINGS: Lateral view of the thoracic and lumbar spine shows no evidence of compression fractures. Bone mineral density measurements of the lumbar spine correspond to a total T-score of -0.4, in the normal range. Bone mineral density measurements of the left hip correspond to a total T-score of -0.1. The femora l neck T-score is -1.7, in the osteopenic range.. Theleft forearm bone mineral density measurements correspond to a T-score of the distal 3rd of 1.0, in the normal range.. IMPRESSION: Bone mineral density of the lumbar spine and forearm. Osteopenia of the hip.
== END ==
PROVIDERS: PCP Family Medicine; Visit Provider Family Medicine
DX: M85.88 Other specified disorders of bone density and structure, other site (principal); Z13.820 Encounter for screening for osteoporosis
CPT/HCPCS: 77080

== ENCOUNTER 2023-09-02 01:27 | Outpatient (CLI) | payer MEDICARE, SELFPAY ==
[2023-09-02 09:32] LABS: Abs Immature Grans 0.05 10^3/uL (0.0-0.06); Absolute Basophil Count 0.04 10^3/uL (0.0-0.2); Absolute Eosinophil Count 0.07 10^3/uL (0.0-0.7); Absolute Lymphocyte Count 1.19 10^3/uL (1.2-3.4); Absolute Neutrophil Count 3.25 10^3/uL (1.2-6.7); Basophils % 0.8 %; Eosinophils % 1.4 %; HCT 46.8 % (40.0-50.0); HGB 15.2 g/dL (13.5-17.5); Lymphocytes % 24.3 %; MCH 31.5 pg (27.0-33.0); MCHC 32.5 % (32.0-36.0); MCV 97 fL (80-95); MPV 12.7 fL (8.0-11.0); Monocytes % 6.1 %; Neutrophils % 66.4 %; Platelet Count 109 10^3/uL (130-400); RBC 4.82 10^6/uL (4.36-5.78); RDW 17.3 % (11.8-14.1); RDW-SD 62.4 fL
[2023-09-02 10:16] LABS: ALT 41 U/L (16-63); AST 27 U/L (15-37); Albumin 3.6 g/dL (3.4-5.0); Alkaline Phosphatase 74 U/L (46-116); Anion Gap 10.3 mmol/L (3-11); BUN 28 mg/dL (7-18); Bilirubin, Total 0.4 mg/dL (0.2-1.0); CO2 25.7 mmol/L (21.0-32.0); CREATININE 1.1 mg/dL (0.70-1.30); Calcium 9.3 mg/dL (8.5-10.1); Chloride 108 mmol/L (98-107); Estimated GFR 68.29 (mL/min/1.73m2); Glucose 134 mg/dL (74-106); Potassium 4.2 mmol/L (3.5-5.1); Sodium 144 mmol/L (136-145); Total Protein 8.1 g/dL (6.4-8.2)
[2023-10-13 12:57] LABS: Indication for Study CML; Specimen Type Blood
[2023-10-13 12:58] LABS: BCR-ABL1 p210 FusionTranscript See Comments
[2023-10-13 13:04] LABS: BCR-ABL1 Interpretation See Comments
[2023-10-13 13:06] LABS: Limitations and Disclaimers See Comments
== END 2023-09-02 01:28 | disposition home or self-care (01) ==
LOC: LBO 01:27
PROVIDERS: PCP Family Medicine; Visit Provider Internal Medicine Hematology & Oncology
DX: C92.10 Chronic myeloid leukemia, BCR/ABL-positive, not having achieved remission (principal)
CPT/HCPCS: 36415; 80053; 81206; 85025

== ENCOUNTER → 2023-09-16 12:13 | Outpatient (BNVA) | payer MEDICARE, SELFPAY | PROVIDERS: PCP Family Medicine; Referring Provider Family Medicine; Visit Provider Nurse Practitioner Gerontology ==

== ENCOUNTER 2023-09-16 15:57 | Outpatient (CLI) | payer MEDICARE, SELFPAY ==
[2023-09-16 23:07] LABS: PSA, Diagnostic 0.1 ng/mL (<=6.5)
== END 2023-09-16 15:58 | disposition home or self-care (01) ==
LOC: LBO 15:58
PROVIDERS: PCP Family Medicine; Visit Provider Nurse Practitioner Gerontology
DX: N40.0 Benign prostatic hyperplasia without lower urinary tract symptoms (principal)
CPT/HCPCS: 36415; 51798; 81003; 99215; 84153

== ENCOUNTER 2024-01-02 02:34 | Outpatient (CLI) | payer MEDICARE, SELFPAY ==
[2024-01-02 09:06] LABS: Abs Immature Grans 0.06 10^3/uL (0.0-0.06); Absolute Basophil Count 0.04 10^3/uL (0.0-0.2); Absolute Eosinophil Count 0.08 10^3/uL (0.0-0.7); Absolute Lymphocyte Count 1.31 10^3/uL (1.2-3.4); Absolute Monocyte Count 0.38 10^3/uL (0.1-0.8); Absolute Neutrophil Count 2.78 10^3/uL (1.2-6.7); Basophils % 0.9 %; Eosinophils % 1.7 %; HCT 47.4 % (40.0-50.0); HGB 15.2 g/dL (13.5-17.5); Immature Grans % 1.3 %; Lymphocytes % 28.2 %; MCHC 32.1 % (32.0-36.0); MCV 97 fL (80-95); Monocytes % 8.2 %; Neutrophils % 59.7 %; Platelet Count 107 10^3/uL (130-400); RBC 4.91 10^6/uL (4.36-5.78); RDW 16.5 % (11.8-14.1); RDW-SD 59.8 fL; WBC 4.65 10^3/uL (4.4-10.8)
[2024-01-02 09:29] LABS: ALT 51 U/L (16-63); AST 38 U/L (15-37); Albumin 3.6 g/dL (3.4-5.0); Alkaline Phosphatase 77 U/L (46-116); Anion Gap 6.8 mmol/L (3-11); BUN 16 mg/dL (7-18); Bilirubin, Total 0.65 mg/dL (0.2-1.0); CO2 26.2 mmol/L (21.0-32.0); CREATININE 1.1 mg/dL (0.70-1.30); Calcium 9.3 mg/dL (8.5-10.1); Chloride 106 mmol/L (98-107); Estimated GFR 67.86 (mL/min/1.73m2); Glucose 94 mg/dL (74-106); Potassium 3.9 mmol/L (3.5-5.1); Sodium 139 mmol/L (136-145); Total Protein 8.1 g/dL (6.4-8.2)
[2024-01-07 08:42] LABS: Indication for Study CML
[2024-01-07 08:48] LABS: BCR-ABL1 p210 FusionTranscript See Comments
[2024-01-07 08:52] LABS: BCR-ABL1 Interpretation See Comments
[2024-01-07 09:05] LABS: Limitations and Disclaimers See Comments
== END 2024-01-02 02:35 | disposition home or self-care (01) ==
LOC: LBO 02:38
PROVIDERS: PCP Family Medicine; Visit Provider Internal Medicine Hematology & Oncology
DX: C92.10 Chronic myeloid leukemia, BCR/ABL-positive, not having achieved remission (principal)
CPT/HCPCS: 36415; 80053; 81206; 85025

== ENCOUNTER 2024-02-13 11:21 | Outpatient (CLI) | payer MEDICARE, SELFPAY ==
--- NOTE | 2024-02-13 11:07 | DI.RAD_ITS ---
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 COMPARISON: CR XR HIP RT COMPLETE AP PELVIS from 02/20/2023 CR XR DEXA BONE DENSITY W/WO YADIEL from 08/29/2023 TECHNIQUE: 2D digital imaging was performed. Two views. FINDINGS: Stable alignment of a right hip prosthesis. No abnormal bony lucencies. DATA REPOSITORY: RADIATION DOSE DELIVERED:
== END 2024-02-13 11:22 | disposition home or self-care (01) ==
LOC: DIORS 11:21
PROVIDERS: PCP Family Medicine; Referring Provider Family Medicine; Visit Provider Physician Assistant
DX: Z47.1 Aftercare following joint replacement surgery (principal); Z96.641 Presence of right artificial hip joint
CPT/HCPCS: 99213; 73502

== ENCOUNTER 2024-04-01 00:28 | Outpatient (CLI) | payer MEDICARE, SELFPAY ==
[2024-04-01 09:10] LABS: Abs Immature Grans 0.04 10^3/uL (0.0-0.06); Absolute Basophil Count 0.04 10^3/uL (0.0-0.2); Absolute Eosinophil Count 0.06 10^3/uL (0.0-0.7); Absolute Lymphocyte Count 1.36 10^3/uL (1.2-3.4); Absolute Monocyte Count 0.26 10^3/uL (0.1-0.8); Absolute Neutrophil Count 3.05 10^3/uL (1.2-6.7); Basophils % 0.8 %; Eosinophils % 1.2 %; HCT 47.9 % (40.0-50.0); HGB 15.6 g/dL (13.5-17.5); Immature Grans % 0.8 %; Lymphocytes % 28.3 %; MCH 31.5 pg (27.0-33.0); MCHC 32.6 % (32.0-36.0); MCV 97 fL (80-95); MPV 12.5 fL (8.0-11.0); Monocytes % 5.4 %; Neutrophils % 63.5 %; Platelet Count 106 10^3/uL (130-400); RBC 4.96 10^6/uL (4.36-5.78); RDW 16.7 % (11.8-14.1); RDW-SD 59.9 fL; WBC 4.81 10^3/uL (4.4-10.8)
[2024-04-01 09:25] LABS: ALT 68 U/L (16-63); AST 44 U/L (15-37); Albumin 3.8 g/dL (3.4-5.0); Alkaline Phosphatase 83 U/L (46-116); Anion Gap 8.2 mmol/L (3-11); BUN 12 mg/dL (7-18); Bilirubin, Total 0.62 mg/dL (0.2-1.0); CO2 27.8 mmol/L (21.0-32.0); CREATININE 1.3 mg/dL (0.70-1.30); Calcium 9.3 mg/dL (8.5-10.1); Chloride 107 mmol/L (98-107); Estimated GFR 55.53 (mL/min/1.73m2); Glucose 129 mg/dL (74-106); Potassium 3.6 mmol/L (3.5-5.1); Sodium 143 mmol/L (136-145); Total Protein 8.3 g/dL (6.4-8.2)
[2024-04-05 08:47] LABS: Indication for Study CML
[2024-04-05 08:49] LABS: BCR-ABL1 p210 FusionTranscript Detected
[2024-04-05 08:53] LABS: BCR-ABL1 Interpretation See Comments
[2024-04-05 08:56] LABS: Limitations and Disclaimers See Comments
== END 2024-04-01 00:29 | disposition home or self-care (01) ==
PROVIDERS: PCP Family Medicine; Visit Provider Internal Medicine Hematology & Oncology
DX: C92.10 Chronic myeloid leukemia, BCR/ABL-positive, not having achieved remission (principal)
CPT/HCPCS: 36415; 80053; 81206; 85025

== ENCOUNTER 2024-07-29 02:19 | Outpatient (CLI) | payer MEDICARE, SELFPAY ==
[2024-07-29 08:49] LABS: Abs Immature Grans 0.05 10^3/uL (0.0-0.06); Absolute Basophil Count 0.04 10^3/uL (0.0-0.2); Absolute Eosinophil Count 0.13 10^3/uL (0.0-0.7); Absolute Lymphocyte Count 1.51 10^3/uL (1.2-3.4); Absolute Monocyte Count 0.39 10^3/uL (0.1-0.8); Absolute Neutrophil Count 3.16 10^3/uL (1.2-6.7); Basophils % 0.8 %; Eosinophils % 2.5 %; HCT 49.2 % (40.0-50.0); HGB 15.8 g/dL (13.5-17.5); Immature Grans % 0.9 %; Lymphocytes % 28.6 %; MCH 31.7 pg (27.0-33.0); MCHC 32.1 % (32.0-36.0); MCV 99 fL (80-95); MPV 11.7 fL (8.0-11.0); Monocytes % 7.4 %; Neutrophils % 59.8 %; Platelet Count 105 10^3/uL (130-400); RBC 4.99 10^6/uL (4.36-5.78); RDW 16.2 % (11.8-14.1); RDW-SD 59.7 fL; WBC 5.28 10^3/uL (4.4-10.8)
[2024-07-29 09:14] LABS: ALT 78 U/L (16-63); AST 54 U/L (15-37); Albumin 3.7 g/dL (3.4-5.0); Alkaline Phosphatase 83 U/L (46-116); Anion Gap 10.6 mmol/L (3-11); BUN 19 mg/dL (7-18); Bilirubin, Total 0.8 mg/dL (0.2-1.0); CO2 25.4 mmol/L (21.0-32.0); CREATININE 1.2 mg/dL (0.70-1.30); Calcium 9.7 mg/dL (8.5-10.1); Chloride 106 mmol/L (98-107); Estimated GFR 61.13 (mL/min/1.73m2); Glucose 105 mg/dL (74-106); Potassium 4.1 mmol/L (3.5-5.1); Sodium 142 mmol/L (136-145); Total Protein 8.4 g/dL (6.4-8.2)
[2024-08-02 11:53] LABS: %BCR-ABL1 <0.0030 %; BCR-ABL1 Molecular Response >4.52; BCR-ABL1 p210 FusionTranscript See Comments (NotDetected)
[2024-08-02 11:59] LABS: BCR-ABL1 Interpretation See Comments
== END 2024-07-29 02:20 | disposition home or self-care (01) ==
LOC: LBO 02:19
PROVIDERS: PCP Family Medicine; Visit Provider Internal Medicine Hematology & Oncology
DX: C92.10 Chronic myeloid leukemia, BCR/ABL-positive, not having achieved remission (principal)
CPT/HCPCS: 36415; 80053; 81206; 85025

== ENCOUNTER 2024-11-29 04:31 | Outpatient (CLI) | payer MEDICARE, SELFPAY ==
[2024-11-29 11:10] LABS: Abs Immature Grans 0.04 10^3/uL (0.0-0.06); HCT 47.2 % (40.0-50.0); HGB 15.1 g/dL (13.5-17.5); Immature Grans % 0.8 %; MCH 30.8 pg (27.0-33.0); MCHC 32.0 % (32.0-36.0); MCV 96 fL (80-95); MPV 12.8 fL (8.0-11.0); Platelet Count 100 10^3/uL (130-400); RBC 4.91 10^6/uL (4.36-5.78); RDW 17.2 % (11.8-14.1); RDW-SD 60.9 fL; WBC 4.99 10^3/uL (4.4-10.8)
[2024-11-29 11:52] LABS: ALT 87 U/L (16-63); AST 50 U/L (15-37); Albumin 3.8 g/dL (3.4-5.0); Alkaline Phosphatase 81 U/L (46-116); Anion Gap 8.2 mmol/L (3-11); BUN 16 mg/dL (7-18); Bilirubin, Total 0.8 mg/dL (0.2-1.0); CO2 27.8 mmol/L (21.0-32.0); Calcium 9.7 mg/dL (8.5-10.1); Chloride 105 mmol/L (98-107); Estimated GFR 61.13 (mL/min/1.73m2); Glucose 100 mg/dL (74-106); Potassium 4.7 mmol/L (3.5-5.1); Sodium 141 mmol/L (136-145); Total Protein 8.6 g/dL (6.4-8.2)
[2024-12-03 10:00] LABS: Indication for Study CML
== END 2024-11-29 04:32 | disposition home or self-care (01) ==
LOC: LBO 04:31
PROVIDERS: PCP Family Medicine; Visit Provider Internal Medicine Hematology & Oncology
DX: C92.10 Chronic myeloid leukemia, BCR/ABL-positive, not having achieved remission (principal)
CPT/HCPCS: 36415; 80053; 81206; 85025

== ENCOUNTER 2025-02-28 03:43 | Outpatient (CLI) | payer MEDICARE, SELFPAY ==
[2025-02-28 11:38] LABS: Abs Immature Grans 0.06 10^3/uL (0.0-0.06); HCT 46.5 % (40.0-50.0); HGB 15.1 g/dL (13.5-17.5); Immature Grans % 1.2 %; MCH 30.9 pg (27.0-33.0); MCHC 32.5 % (32.0-36.0); MCV 95 fL (80-95); MPV 12.7 fL (8.0-11.0); Platelet Count 102 10^3/uL (130-400); RBC 4.89 10^6/uL (4.36-5.78); RDW 16.9 % (11.8-14.1); RDW-SD 58.6 fL; WBC 4.90 10^3/uL (4.4-10.8)
[2025-02-28 11:55] LABS: ALT 43 U/L (10-49); AST 41 U/L (<34); Albumin 4.2 g/dL (3.4-5.0); Alkaline Phosphatase 76 U/L (46-116); Anion Gap 9.7 mmol/L (3-11); BUN 15 mg/dL (9-23); Bilirubin, Total 0.80 mg/dL (0.2-1.2); CO2 24.3 mmol/L (20.0-31.0); Calcium 9.4 mg/dL (8.3-10.6); Chloride 108 mmol/L (98-107); Glucose 91 mg/dL (74-106); Potassium 4.1 mmol/L (3.5-5.1); Sodium 142 mmol/L (136-145); Total Protein 8.0 g/dL (5.7-8.2)
== END 2025-02-28 03:44 | disposition home or self-care (01) ==
LOC: LBO 03:43
PROVIDERS: PCP Family Medicine; Visit Provider Internal Medicine Hematology & Oncology
DX: C92.10 Chronic myeloid leukemia, BCR/ABL-positive, not having achieved remission (principal)
CPT/HCPCS: 36415; 80053; 81206; 85025